=== PATIENT | female | born 1940 | race Caucasian/White ===

== ENCOUNTER 2019-11-19 06:24 | Inpatient (IN) | payer MEDICARE, OTHER ==
[~2019-11-19 06:24] MED LIST: Bisacodyl 5 MG Tab PO PRN; Cyclobenzaprine 10 MG Tab PO PRN; Ketorolac 15 MG/ML SDV IVPUSH PRN; Lactated Ringers 1,000 ML IV SCH; Lidocaine 1%/Sod Bicarbonate in NS 8.4% 1 ML Syringe IDERM PRN; Magnesium Hydroxide 400 MG/5 ML Susp 30 ML Cup PO PRN; Morphine 2 MG/ML SYRINGE IVPUSH PRN; Naloxone 0.4 MG/ML SDV IVPUSH PRN; Ondansetron 4 MG/2 ML SDV IVPUSH PRN; Sennosides 8.6 MG Tab PO PRN; Sodium Chloride 0.9% 10 ML Syringe FLUSH PRN
[2019-11-19] MEDS ORDERED: Pregabalin 25 MG Cap PO SCH (07:00)
[2019-11-19] MEDS ORDERED: Acetaminophen 325 MG Tab PO SCH (07:00)
[2019-11-19] MEDS ORDERED: oxyCODONE ER 10 MG TAB.ER PO SCH (07:00)
[2019-11-19] MEDS ORDERED: Ropivacaine 0.5% 5 MG/ML 30 ML SDV ONE (07:11)
[2019-11-19] MEDS ORDERED: EPINEPHrine 1 MG/ML SDV ONE (07:11)
--- NOTE | 2019-11-19 08:36 | PCM.CONS ---
H&P History of Present Illness - General Date of Service: 11/19/19 Admit Problem/Dx: Admission Diagnosis/Problem Admission Diagnosis/Problem Osteoarthritis of knee Source of Information: Patient, Provider, RN, RN Notes Reviewed History Limitations: Reports: No Limitations - History of Present Illness Initial Comments - Free Text/Narative: Bhumika Stuart is a 78 yo female patient of Dr. Branch who is post-operative day 0 of TKA. Hospital medicine was consulted for post-operative medical care of the following listed medical conditions. At this time she is resting comfortably in bed. Pain is controlled. She denies any chest pain, shortness of breath, palpitations, nausea, or vomiting. She carries a history of: HLD, CAD, Stents placed in LAD on 11/2016, Osteoporosis, HTN, Macular degeneration, Obesity, Hypothyroidism, Pre-DM, History of bioprosthetic valve replacement on 01/15/19, Complete AV block, Abnormal LFTs, History of CABG, Pacemaker, GERD, Aortic sclerosis. She is a former smoker. She is a full code. Her primary care provider is Dr. Stevens. Her pole peeler is Dr. Handy. - Related Data Allergies/Adverse Reactions: Allergies Allergy/AdvReac Type Severity Reaction Status Date / Time adhesive Allergy Blisters Verified 11/16/19 12:44 Sulfa (Sulfonamide Allergy Rash Verified 11/16/19 12:44 Antibiotics) Home Medications: Home Meds Acetaminophen [Tylenol Arthritis] 1,300 mg PO BID 11/16/19 [History] Arginine HCl [l-Arginine] 1,000 mg PO BID 11/16/19 [History] Aspirin 325 mg PO DAILY 11/16/19 [History] Cholecalciferol (Vitamin D3) [Vitamin D3] 1,000 unit PO DAILY 11/16/19 [History] Denosumab [Prolia] 1 dose SQ ASDIRECTED 11/16/19 [History] Glucosamine/D3/Boswellia Marlen [Osteo Bi-Flex Caplet] 1 tab PO DAILY 11/16/19 [History] Lactobacillus Acidophilus [Probiotic] 1 cap PO DAILY 11/16/19 [History] Losartan [Cozaar] 25 mg PO DAILY 11/16/19 [History] Metoprolol Tartrate 50 mg PO BID 11/16/19 [History] Multivitamin 1 each PO DAILY 11/16/19 [History] Pantoprazole Sodium [Protonix] 40 mg PO DAILY 11/16/19 [History] Ubidecarenone [Coq-10] 100 mg PO DAILY 11/16/19 [History] atorvaSTATin [Lipitor] 40 mg PO DAILY 11/16/19 [History] polyethylene glycoL 3350 [MiraLAX] 17 gm PO DAILY 11/16/19 [History] Past Medical History HEENT History: Reports: Impaired Vision, Macular Degeneration Cardiovascular History: Reports: CAD, Stents, Other (See Below) Other Cardiovascular History: left carotid bruit, pacemaker, aortic sclerosis, AV block, Left BBB, aortic valve replacement Respiratory History: Reports: None Gastrointestinal History: Reports: Colon Polyp, Other (See Below) Other Gastrointestinal History: heme + positive, esophagitis, umbilical hernia repair Genitourinary History: Reports: None STACKER History: Reports: None Musculoskeletal History: Reports: Osteoarthritis, Other (See Below) Other Musculoskeletal History: right toe pain, osteoporosis, left leg fracture Neurological History: Reports: None Psychiatric History: Reports: None Endocrine/Metabolic History: Reports: Hypothyroidism, Obesity/BMI 30+ Hematologic History: Reports: None Immunologic History: Reports: None Oncologic (Cancer) History: Reports: None Dermatologic History: Reports: Other (See Below) Other Dermatologic History: paronychia, onchomycosis, corn/callous - Infectious Disease History Infectious Disease History: Reports: None - Past Surgical History Head Surgeries/Procedures: Reports: None HEENT Surgical History: Reports: Cataract Surgery Cardiovascular Surgical History: Reports: Coronary Artery Bypass Respiratory Surgical History: Reports: None GI Surgical History: Reports: None Female Surgical History: Reports: None Male Surgical History: Reports: None Endocrine Surgical History: Reports: None Neurological Surgical History: Reports: None Musculoskeletal Surgical History: Reports: Other (See Below) Other Musculoskeletal Surgeries/Procedures:: right rotator cuff repair and replacement, bunionectomy, left knee arthroscopy, left leg fracture with repair, left wrist surgery Oncologic Surgical History: Reports: None Dermatological Surgical History: Reports: None Social & Family History - Tobacco Use Smoking Status *Q: Former Smoker Used Tobacco, but Quit: Yes Month/Year Tobacco Last Used: 1999 Second Hand Smoke Exposure: No - Caffeine Use Caffeine Use: Reports: Coffee - Recreational Drug Use Recreational Drug Use: No H&P Review of Systems - Review of Systems: Review Of Systems: See Below General: Reports: No Symptoms. Denies: Fever, Chills HEENT: Reports: No Symptoms. Denies: Headaches, Sore Throat Pulmonary: Reports: No Symptoms. Denies: Shortness of Breath, Wheezing, Pleuritic Chest Pain, Cough, Sputum Cardiovascular: Reports: No Symptoms. Denies: Chest Pain, Palpitations, Dyspnea on Exertion Gastrointestinal: Reports: No Symptoms. Denies: Abdominal Pain, Constipation, Diarrhea, Nausea, Vomiting Genitourinary: Reports: No Symptoms Musculoskeletal: Reports: Leg Pain Skin: Reports: No Symptoms. Denies: Cyanosis Psychiatric: Reports: No Symptoms. Denies: Confusion Neurological: Reports: Numbness, Tingling, Difficulty Walking, Gait Disturbance. Denies: Pre-Existing Deficit Hematologic/Lymphatic: Reports: No Symptoms Immunologic: Reports: No Symptoms Exam - Exam Exam: See Below - Exam Quality Assessment: Supplemental Oxygen, DVT Prophylaxis General: Alert, Oriented, Cooperative, Mild Distress HEENT: Conjunctiva Clear, EACs Clear, EOMI, Mucosa Moist & [place], Posterior Pharynx Clear, PERRLA Neck: Supple, Trachea Midline Lungs: Clear to Auscultation, Normal Respiratory Effort, Rhonchi Cardiovascular: Regular Rate, Regular Rhythm, Systolic Murmur GI/Abdominal Exam: Normal Bowel Sounds, Soft, Non-Tender, No Distention (Female) Exam: Deferred Rectal (Female) Exam: Deferred Extremities: Normal Capillary Refill, Leg Pain, Limited Range of Motion, Other (Bandage in place on right leg. Bandage is dry and intact. Cooling pack in place. ) Peripheral Pulses: 2+: Radial (L), Radial (R), Dorsalis Pedis (L), Dorsalis Pedis (R) Skin: Warm, Dry, Intact Neurological: Cranial Nerves Intact (Grossly ) Neuro Extensive - Mental Status: Alert, Oriented x3, Normal Mood/Affect Sepsis Event Note - Focused Exam Date Exam was Performed: 11/19/19 Time Exam was Performed: 14:55 Consult PN Assessment/Plan POD#: 0 (1) S/P total knee arthroplasty SNOMED Code(s): 3255392339324, 389845508, 6368448960896 Code(s): Z96.659 - PRESENCE OF UNSPECIFIED ARTIFICIAL KNEE JOINT Priority: High Current Visit: Yes Qualifiers: Laterality: right Qualified Code(s): Z96.651 - Presence of right artificial knee joint (2) Osteoarthritis SNOMED Code(s): 018349665 Code(s): M19.90 - UNSPECIFIED OSTEOARTHRITIS, UNSPECIFIED SITE Priority: High Current Visit: Yes Qualifiers: Osteoarthritis location: knee Osteoarthritis type: primary Laterality: right Qualified Code(s): M17.11 - Unilateral primary osteoarthritis, right knee (3) HLD (hyperlipidemia) SNOMED Code(s): 58409002 Code(s): E78.5 - HYPERLIPIDEMIA, UNSPECIFIED Priority: Low Current Visit: No Qualifiers: Hyperlipidemia type: unspecified Qualified Code(s): E78.5 - Hyperlipidemia, unspecified (4) CAD (coronary artery disease) SNOMED Code(s): 98082150 Code(s): I25.10 - ATHSCL HEART DISEASE OF [place] CORONARY ARTERY W/O ANG PCTRS Priority: Medium Current Visit: No Qualifiers: Coronary Disease-Associated Artery/Lesion type: unspecified vessel or lesion type [place] vs. transplanted heart: [place] heart Associated angina: angina presence unspecified Qualified Code(s): I25.10 - Atherosclerotic heart disease of [place] coronary artery without angina pectoris (5) History of heart artery stent SNOMED Code(s): 093730248, 729834689 Code(s): Z95.5 - PRESENCE OF CORONARY ANGIOPLASTY IMPLANT AND GRAFT Priority: Medium Current Visit: Yes (6) Osteoporosis SNOMED Code(s): 74467056 Code(s): M81.0 - AGE-RELATED OSTEOPOROSIS W/O CURRENT PATHOLOGICAL FRACTURE Priority: Medium Current Visit: No Qualifiers: Osteoporosis type: unspecified Presence of current pathological fracture: u nspecified Qualified Code(s): M81.0 - Age-related osteoporosis without current pathological fracture (7) HTN (hypertension) SNOMED Code(s): 49569283 Code(s): I10 - ESSENTIAL (PRIMARY) HYPERTENSION Priority: Medium Current Visit: No Qualifiers: Hypertension type: unspecified Qualified Code(s): I10 - Essential (primary) hypertension (8) Macular degeneration SNOMED Code(s): 452659584 Code(s): H35.30 - UNSPECIFIED MACULAR DEGENERATION Priority: Low Current Visit: No Qualifiers: Macular degeneration type: unspecified type Eye laterality: unspecified Qualified Code(s): H35.30 - Unspecified macular degeneration (9) Obesity SNOMED Code(s): 388238711, 546327541 Code(s): E66.9 - OBESITY, UNSPECIFIED Priority: Low Current Visit: No Qualifiers: Obesity type: unspecified obesity type Obesity classification: adult class 1 (BMI 30 - 34.9) Serious obesity comorbidity presence: unspecified whether serious comorbidity present Body mass index: BMI 33.0-33.9 Qualified Code(s): E66.9 - Obesity, unspecified; Z68.33 - Body mass index (BMI) 33.0-33.9, adult (10) Hypothyroidism SNOMED Code(s): 04399211 Code(s): E03.9 - HYPOTHYROIDISM, UNSPECIFIED Priority: Low Current Visit: No Qualifiers: Hypothyroidism type: unspecified Qualified Code(s): E03.9 - Hypothyroidism, unspecified (11) Pre-diabetes SNOMED Code(s): 757715416 Code(s): R73.03 - PREDIABETES Priority: Low Current Visit: No (12) History of aortic valve replacement with bioprosthetic valve SNOMED Code(s): 5809289758042 Code(s): Z95.3 - PRESENCE OF XENOGENIC HEART VALVE Priority: Medium Current Visit: Yes Onset Date: ~01/15/19 (13) History of complete AV block SNOMED Code(s): 319493692876348 Code(s): Z86.79 - PERSONAL HISTORY OF OTHER DISEASES OF THE CIRCULATORY SYSTEM Priority: Medium Current Visit: Yes (14) Abnormal LFTs SNOMED Code(s): 294590338 Code(s): R94.5 - ABNORMAL RESULTS OF LIVER FUNCTION STUDIES Priority: Medium Current Visit: No (15) History of coronary artery bypass graft SNOMED Code(s): 898758517, 722454201 Code(s): Z95.1 - PRESENCE OF AORTOCORONARY BYPASS GRAFT Priority: Medium Current Visit: Yes Onset Date: ~01/11/19 (16) Pacemaker SNOMED Code(s): 921511301 Code(s): Z95.0 - PRESENCE OF CARDIAC PACEMAKER Priority: Medium Current Visit: Yes (17) GERD (gastroesophageal reflux disease) SNOMED Code(s): 377305099 Code(s): K21.9 - GASTRO-ESOPHAGEAL REFLUX DISEASE WITHOUT ESOPHAGITIS Priority: Medium Current Visit: Yes Qualifiers: Esophagitis presence: esophagitis presence not specified Qualified Code(s): K21.9 - Gastro-esophageal reflux disease without esophagitis (18) Aortic valve sclerosis SNOMED Code(s): 84586407 Code(s): I35.8 - OTHER NONRHEUMATIC AORTIC VALVE DISORDERS Priority: Medium Current Visit: No (19) Former smoker SNOMED Code(s): 5784813 Code(s): Z87.891 - PERSONAL HISTORY OF NICOTINE DEPENDENCE Priority: Low Current Visit: No Problem List Initiated/Reviewed/Updated: Yes Plan: I/P: Acute: S/P right total knee arthroplasty - post-operative day 0 -DVT prophylaxis and pain management per primary care team -PT/OT -IS/RT -Monitor oxygen saturation -Titrate oxygen as needed -Home medications reviewed -Vital signs stable -Monitor labs -Pre-operative Hgb was 13.9 -Pre-operative GFR was 68 -Pre-operative BUN was 24 -Pre-operative A1C was 5.8% -Pre-operative Echo showed EF of 65-70% with biatrial dilation and a bioprosthetic valve -Pre-operative EKG showed a LBBB Osteoarthritis of right knee -Pain management per primary care team Chronic: HLD CAD Stents placed in LAD on 11/2016 Osteoporosis HTN Macular degeneration Obesity Hypothyroidism Pre-DM History of bioprosthetic aortic valve replacement on 01/15/19 Complete AV block Abnormal LFTs History of CABG Pacemaker GERD Aortic Sclerosis Plan: Telemetry CM for discharge planning GI prophylaxis Home medications as indicated Other orders as listed above Routine AM labs She is a full code. Her PCP is Dr. [place]. Her pole peeler is Dr. Handy. Thank you for allowing us to participate in the care of this patient!! Requesting Provider: Dr. Branch Date Consult Requested: 11/19/19 Patient History Reviewed: Yes Admission H&P Reviewed: Yes Notified Requestor: Yes
[2019-11-19] MEDS ORDERED: Midazolam 1 MG/ML 2 ML SDV ONE (08:54)
[2019-11-19] MEDS ORDERED: Propofol 200 MG/20 ML SDV ONE ×2 (08:54→11:18)
[2019-11-19] MEDS ORDERED: Lidocaine 1% 4 ML ONE (08:54)
[2019-11-19] MEDS ORDERED: fentaNYL 100 MCG/2 ML SDV ONE ×2 (08:54→11:23)
[2019-11-19] MEDS ORDERED: ceFAZolin 1 GM Vial ONE ×2 (09:01→09:08)
[2019-11-19] MEDS ORDERED: Vancomycin 1 GM SDV ONE (09:07)
[2019-11-19] MEDS ORDERED: Iodine/Sodium Iodide 2% Tincture 30 ML Bottle ONE (09:08)
[2019-11-19] MEDS ORDERED: Bupivacaine 0.25% 10 ML SDV ONE (09:08)
--- NOTE | 2019-11-19 09:30 | PCM.PREANE ---
Preanesthetic Assessment - Anesthesia/Transfusion/Family Hx Anesthesia History: Prior Anesthesia Without Reaction Family History of Anesthesia Reaction: No Transfusion History: No Prior Transfusion(s) - Review of Systems General: No Symptoms Pulmonary: No Symptoms Cardiovascular: No Symptoms Gastrointestinal: No Symptoms Neurological: No Symptoms Other: Reports: None - Physical Assessment NPO Status Date: 11/18/19 NPO Status Time: 21:00 Vital Signs: Last Vital Signs Temp 36.2 C 11/19/19 08:15 Pulse 60 11/19/19 08:15 Resp 16 11/19/19 08:15 BP 144/57 H 11/19/19 08:15 Pulse Ox 98 11/19/19 08:15 Height: 1.5 m Weight: 75.75 kg ASA Class: 3 Mental Status: Alert & Oriented x3 Airway Class: Mallampati = 2 Dentition: Reports: Normal Dentition Thyro-Mental Finger Breadths: 3 Mouth Opening Finger Breadths: 3 ROM/Head Extension: Full Lungs: Clear to Auscultation, Normal Respiratory Effort Cardiovascular: Regular Rate, Murmurs - Lab Values: Laboratory Last Values COVID-19 PCR Not detected (NOT DETECT) 11/15/19 11:00 MRSA (PCR) Negative 11/09/19 13:55 - Allergies Allergies/Adverse Reactions: Allergies Allergy/AdvReac Type Severity Reaction Status Date / Time adhesive Allergy Blisters Verified 11/16/19 12:44 Sulfa (Sulfonamide Allergy Rash Verified 11/16/19 12:44 Antibiotics) - Anesthesia Plan Beta Nini: Metoprolol Med Last Dose Date: 11/19/19 Med Last Dose Time: 05:30 - Acknowledgements Anesthesia Type Planned: Spinal Pt an Appropriate Candidate for the Planned Anesthesia: Yes Alternatives and Risks of Anesthesia Discussed w Pt/Guardian: Yes Pt/Guardian Understands and Agrees with Anesthesia Plan: Yes PreAnesthesia Questionnaire HEENT History: Reports: Impaired Vision, Macular Degeneration Cardiovascular History: Reports: CAD, Stents, Other (See Below) Other Cardiovascular History: left carotid bruit, pacemaker, aortic sclerosis, AV block, Left BBB, aortic valve replacement Respiratory History: Reports: None Gastrointestinal History: Reports: Colon Polyp, GERD, Other (See Below) Other Gastrointestinal History: heme + positive, esophagitis, umbilical hernia repair Genitourinary History: Reports: None PROFESSIONAL DRIVER History: Reports: None Musculoskeletal History: Reports: Osteoarthritis, Other (See Below) Other Musculoskeletal History: right toe pain, osteoporosis, left leg fracture Neurological History: Reports: None Psychiatric History: Reports: None Endocrine/Metabolic History: Reports: Obesity/BMI 30+ Hematologic History: Reports: None Immunologic History: Reports: None Oncologic (Cancer) History: Reports: None Dermatologic History: Reports: Other (See Below) Other Dermatologic History: paronychia, onchomycosis, corn/callous - Infectious Disease History Infectious Disease History: Reports: None - Past Surgical History Head Surgeries/Procedures: Reports: None HEENT Surgical History: Reports: Cataract Surgery Cardiovascular Surgical History: Reports: Coronary Artery Bypass, Coronary Artery Stent, Pacer, Valve Replacement Respiratory Surgical History: Reports: None GI Surgical History: Reports: None Female Surgical History: Reports: None Male Surgical History: Reports: None Endocrine Surgical History: Reports: None Neurological Surgical History: Reports: None Musculoskeletal Surgical History: Reports: Other (See Below) Other Musculoskeletal Surgeries/Procedures:: right rotator cuff repair and replacement, bunionectomy, left knee arthroscopy, left leg fracture with repair, left wrist surgery, left wrist, left hip Oncologic Surgical History: Reports: None Dermatological Surgical History: Reports: None - SUBSTANCE USE Smoking Status *Q: Former Smoker Second Hand Smoke Exposure: No Recreational Drug Use History: No - HOME MEDS Home Medications: Home Meds Acetaminophen [Tylenol Arthritis] 1,300 mg PO BID 11/16/19 [History] Arginine HCl [l-Arginine] 1,000 mg PO BID 11/16/19 [History] Aspirin 325 mg PO DAILY 11/16/19 [History] Cholecalciferol (Vitamin D3) [Vitamin D3] 1,000 unit PO DAILY 11/16/19 [History] Denosumab [Prolia] 1 dose SQ ASDIRECTED 11/16/19 [History] Glucosamine/D3/Boswellia Marlen [Osteo Bi-Flex Caplet] 1 tab PO DAILY 11/16/19 [History] Lactobacillus Acidophilus [Probiotic] 1 cap PO DAILY 11/16/19 [History] Losartan [Cozaar] 25 mg PO DAILY 11/16/19 [History] Metoprolol Tartrate 50 mg PO BID 11/16/19 [History] Multivitamin 1 each PO DAILY 11/16/19 [History] Pantoprazole Sodium [Protonix] 40 mg PO DAILY 11/16/19 [History] Ubidecarenone [Coq-10] 100 mg PO DAILY 11/16/19 [History] atorvaSTATin [Lipitor] 40 mg PO DAILY 11/16/19 [History] polyethylene glycoL 3350 [MiraLAX] 17 gm PO DAILY 11/16/19 [History] - CURRENT (IN HOUSE) MEDS Current Meds: Current Medications Acetaminophen (Tylenol) 975 mg PO ONETIME RADU Stop: 11/19/19 14:00 Last Admin: 11/19/19 09:12 Dose: 975 mg Documented by: Aspirin (Ecotrin) 325 mg PO BID [facility]U Bisacodyl (Dulcolax) 5 mg PO DAILY PRN PRN Reason: Constipation Morphine Sulfate 8 mg/Epinephrine HCl 0.3 mg/Cefuroxime Sodium 750 mg/Ketorolac Tromethamine 30 mg/Sodium Chloride 7.9 ml 0 mg .XX ASDIRECTED PRN PRN Reason: Pain Stop: 11/19/19 23:00 Cyclobenzaprine HCl (Flexeril) 5 mg PO TID PRN PRN Reason: Spasms Docusate Sodium (Colace) 100 mg PO BID RADU Famotidine (Pepcid) 20 mg PO Q12H [facility] Lactated Ringer's (Ringers, Lactated) 1,000 mls @ 125 mls/hr IV ASDIRECTED [facility] Stop: 11/19/19 23:00 Cefazolin Sodium/Dextrose 2 gm (/ Premix) 50 mls @ 100 mls/hr IV Q8H [facility] Stop: 11/20/19 09:44 Ketorolac Tromethamine (Toradol) 15 mg IVPUSH Q6H PRN PRN Reason: Pain Lidocaine/Sodium Bicarbonate (Buffered Lidocaine 1% In Ns 8.4%) 0.25 ml IDERM ONETIME PRN PRN Reason: Prior to IV Start Stop: 11/19/19 18:00 Magnesium Hydroxide (Milk Of Magnesia) 30 ml PO BID PRN PRN Reason: Constipation Morphine Sulfate (Morphine) 2 mg IVPUSH Q2H PRN PRN Reason: Breakthrough Pain Naloxone HCl (Narcan) 0.1 mg IVPUSH Q5M PRN PRN Reason: Oversedation Ondansetron HCl (Zofran) 4 mg IVPUSH Q6H PRN PRN Reason: Nausea/Vomiting Oxycodone HCl (Oxycontin) 10 mg PO ONETIME [facility] Stop: 11/19/19 14:00 Last Admin: 11/19/19 09:13 Dose: 10 mg Documented by: Oxycodone/Acetaminophen (Percocet 325-5 Mg) 1 - 2 tab PO Q4H PRN PRN Reason: Pain Pregabalin (Lyrica) 50 mg PO ONETIME [facility] Stop: 11/19/19 14:00 Last Admin: 11/19/19 09:13 Dose: 50 mg Documented by: Senna (Senna) 8.6 mg PO BID PRN PRN Reason: Constipation Sodium Chloride (Saline Flush) 10 ml FLUSH ASDIRECTED PRN PRN Reason: Keep Vein Open Stop: 11/19/19 18:00 Discontinued Medications Bupivacaine HCl (Sensorcaine-Mpf 0.25%) Confirm Administered Dose 30 ml .ROUTE .STK-MED ONE Stop: 11/19/19 09:09 Cefazolin Sodium (Ancef) Confirm Administered Dose 2 gm .ROUTE .STK-MED ONE Stop: 11/19/19 09:02 Cefazolin Sodium (Ancef) Confirm Administered Dose 2 gm .ROUTE .STK-MED ONE Stop: 11/19/19 09:09 Epinephrine HCl (Adrenalin) Confirm Administered Dose 1 mg .ROUTE .STK-MED ONE Stop: 11/19/19 07:12 Fentanyl (Sublimaze) Confirm Administered Dose 100 mcg .ROUTE .STK-MED ONE Stop: 11/19/19 08:55 Lidocaine HCl (Xylocaine-Mpf 1%) Confirm Administered Dose 4 mls @ as directed .ROUTE .STK-MED ONE Stop: 11/19/19 08:55 Iodine (Iodine 2% Mild Tincture) Confirm Administered Dose 30 ml .ROUTE .STK-MED ONE Stop: 11/19/19 09:09 Midazolam HCl (Versed 1 Mg/Ml) Confirm Administered Dose 2 mg .ROUTE .STK-MED ONE Stop: 11/19/19 08:55 Propofol (Diprivan 20 Ml) Confirm Administered Dose 200 mg .ROUTE .STK-MED ONE Stop: 11/19/19 08:55 Ropivacaine (Naropin 0.5%) Confirm Administered Dose 30 ml .ROUTE .STK-MED ONE Stop: 11/19/19 07:12 Tranexamic Acid (Cyklokapron) Confirm Administered Dose 1,000 mg .ROUTE .STK-MED ONE Stop: 11/19/19 09:08 Vancomycin HCl (Vancomycin) Confirm Administered Dose 1 gm .ROUTE .STK-MED ONE Stop: 11/19/19 09:08
[2019-11-19] MEDS ORDERED: Morphine 8 MG, EPINEPHrine 0.3 MG, Cefuroxime 750 MG, Ketorolac 30 MG, Sodium Chloride ... PRN ×5 (11:15)
[2019-11-19] MEDS ORDERED: HYDROmorphone 0.5 MG/0.5 ML Syringe ONE (11:26)
--- NOTE | 2019-11-19 12:51 | PCM.POSTAN ---
POST ANESTHESIA ASSESSMENT - MENTAL STATUS Mental Status: Alert, Oriented - VITAL SIGNS Vital Signs: Last Vital Signs Temp 36.2 C 11/19/19 08:15 Pulse 60 11/19/19 08:15 Resp 16 11/19/19 08:15 BP 144/57 H 11/19/19 08:15 Pulse Ox 98 11/19/19 08:15 - RESPIRATORY Respiratory Status: Respiratory Rate WNL, Airway Patent, O2 Saturation Stable - CARDIOVASCULAR CV Status: Pulse Rate WNL, Blood Pressure Stable - GASTROINTESTINAL GI Status: No Symptoms - PAIN Pain Score: 2 - POST OP HYDRATION Hydration Status: Adequate & Stable
[2019-11-19] MEDS ORDERED: Ondansetron 4 MG/2 ML SDV IVPUSH PRN ×2 (12:55→12:56)
[2019-11-19] MEDS ORDERED: HYDROmorphone 0.5 MG/0.5 ML Syringe IVPUSH PRN (12:56)
[2019-11-19] MEDS ORDERED: fentaNYL 100 MCG/2 ML SDV IVPUSH PRN (12:56)
[2019-11-19] MEDS: fentaNYL 100 MCG/2 ML SDV IVPUSH PRN ×2 (13:00→13:33)
--- NOTE | 2019-11-19 13:20 | PCM.SN.2 ---
- Free Text/Narrative Note: Right selective femoral nerve block at the adductor canal for post-procedure pain control under US guidance requested by Dr. Branch. Time Out: 1226 Start: 1226 End: 1237 Chart reviewed. Consent signed. Questions answered. Appropriate monitors applied. Time out performed. Right mid-shaft femur identified with ultrasound, scanning medially of femur, the femoral artery in the adductor canal visualized, and the femoral nerve located laterally to the artery. The skin was prepped lateral to the ultrasound probe with chlorahexadine times two. The 21ga 4 insulated block needle was inserted under direct ultrasound guidance into the adductor canal. 25mL of 0.5% ropivacaine with 1:200,000 epinephrine was injected circumferentially around the nerve with intermittent negative aspiration noted. Patient tolerated the procedure well. Sterile technique noted along with sterile gloves, mask, and sterile probe cover. See picture on progress note and vital signs on anesthesia record. Erinn Buckner STRAINER CLEANER
--- NOTE | 2019-11-19 13:23 | CR ---
Right knee: AP and crosstable lateral views of the right knee were obtained. Comparison: Standing AP bilateral knee exam of 07/29/09 is available. Knee prosthesis is seen. Components are aligned. Soft tissue air is noted from the surgical procedure. Underlying bony structures are intact. Impression: 1. Satisfactory postop radiographic appearance of recently placed right knee prosthesis. Diagnostic code #2 This report was dictated in MDT
[2019-11-19] MEDS ORDERED: Meperidine 50 MG/ML Vial IVPUSH STA (13:34)
--- NOTE | 2019-11-19 13:38 | PCM48HPAN ---
Post Anesthesia Note - EVALUATION WITHIN 48HRS OF ANESTHETIC Vital Signs in Normal Range: Yes Patient Participated in Evaluation: Yes Respiratory Function Stable: Yes Airway Patent: Yes Cardiovascular Function Stable: Yes Hydration Status Stable: Yes Pain Control Satisfactory: No (pt inc pain, PACU nurse titrating narcotics) Nausea and Vomiting Control Satisfactory: Yes Mental Status Recovered: Yes Vital Signs: Last Vital Signs Temp 36.7 C 11/19/19 12:45 Pulse 60 11/19/19 08:15 Resp 21 H 11/19/19 13:15 BP 161/59 H 11/19/19 13:15 Pulse Ox 98 11/19/19 13:15
[2019-11-19] MEDS: Acetaminophen/oxyCODONE 325-5 MG Tab PO PRN ×2 (13:46→17:56)
[2019-11-19] MEDS: ceFAZolin 2 GM in Premix Bag 1 BAG IV SCH (17:50)
[2019-11-19] MEDS: Metoprolol Tartrate 50 MG Tab PO SCH (20:32)
[2019-11-19] MEDS: Famotidine 20 MG Tab PO SCH (20:33)
[2019-11-19] MEDS: Docusate Sodium 100 MG Cap PO SCH (20:33)
[2019-11-20] MEDS: ceFAZolin 2 GM in Premix Bag 1 BAG IV SCH ×2 (01:06→09:55)
[2019-11-20] MEDS: Acetaminophen/oxyCODONE 325-5 MG Tab PO PRN ×3 (01:10→14:44)
--- NOTE | 2019-11-20 07:46 | PCM.CONSN ---
- General Info Date of Service: 11/20/19 Admission Dx/Problem (Free Text): Admission Diagnosis/Problem Admission Diagnosis/Problem Osteoarthritis of knee Functional Status: Reports: Pain Controlled, Tolerating Diet, Ambulating, Urinating, Incentive Spirometry. Denies: New Symptoms - Review of Systems General: Reports: No Symptoms. Denies: Chills HEENT: Reports: No Symptoms. Denies: Headaches, Sore Throat Pulmonary: Reports: No Symptoms. Denies: Shortness of Breath, Pleuritic Chest Pain, Cough, Sputum, Wheezing Cardiovascular: Reports: No Symptoms. Denies: Chest Pain, Palpitations, Dyspnea on Exertion Gastrointestinal: Reports: No Symptoms. Denies: Abdominal Pain, Constipation, Diarrhea, Nausea, Vomiting Genitourinary: Reports: No Symptoms. Denies: Pain Musculoskeletal: Reports: Leg Pain Skin: Reports: No Symptoms. Denies: Cyanosis Neurological: Reports: Difficulty Walking, Gait Disturbance. Denies: Confusion, Numbness, Tingling Psychiatric: Reports: No Symptoms - Patient Data Vitals - Most Recent: Last Vital Signs Temp 98.1 F 11/20/19 03:49 Pulse 98 11/20/19 03:49 Resp 16 11/20/19 03:49 BP 148/60 H 11/20/19 03:49 Pulse Ox 95 11/20/19 03:49 Weight - Most Recent: 163 lb 12.8 oz I&O - Last 24 Hours: Intake & Output 11/19/19 11/20/19 11/20/19 22:59 06:59 14:59 Intake Total 650 Output Total 400 Balance 250 Lab Results Last 24 Hours: Laboratory Results - last 24 hr 11/20/19 11/20/19 Range/Units 05:04 05:04 WBC 6.70 (3.98-10.04) K/mm3 RBC 3.87 L (3.98-5.22) M/mm3 Hgb 11.3 (11.2-15.7) gm/dl Hct 36.8 (34.1-44.9) % MCV 95.1 H (79.4-94.8) fl MCH 29.2 (25.6-32.2) pg MCHC 30.7 L (32.2-35.5) g/dl RDW Std Deviation 41.7 (36.4-46.3) fL Plt Count 130 L (182-369) K/mm3 MPV 10.4 (9.4-12.3) fl Sodium 138 (136-145) mEq/L Potassium 3.9 (3.5-5.1) mEq/L Chloride 103 (98-107) mEq/L Carbon Dioxide 29 (21-32) mEq/L Anion Gap 9.9 (5-15) BUN 20 H (7-18) mg/dL Creatinine 0.9 (0.55-1.02) mg/dL Est Cr Clr Drug Dosing 38.20 mL/min Estimated GFR (MDRD) > 60 (>60) mL/min BUN/Creatinine Ratio 22.2 H (14-18) Glucose 134 H (83-115) mg/dL Calcium 8.6 (8.5-10.1) mg/dL Total Bilirubin 0.5 (0.2-1.0) mg/dL AST 23 (15-37) U/L ALT 23 (14-59) U/L Alkaline Phosphatase 48 (46-116) U/L Total Protein 6.3 L (6.4-8.2) g/dl Albumin 3.0 L (3.4-5.0) g/dl Globulin 3.3 gm/dL Albumin/Globulin Ratio 0.9 L (1-2) Med Orders - Current: Current Medications Aspirin (Ecotrin) 325 mg PO BID [facility] Bisacodyl (Dulcolax) 5 mg PO DAILY PRN PRN Reason: Constipation Cholecalciferol (Vitamin D3) 25 mcg PO DAILY [facility] Cyclobenzaprine HCl (Flexeril) 5 mg PO TID PRN PRN Reason: Spasms Last Admin: 11/19/19 20:33 Dose: 5 mg Documented by: Docusate Sodium (Colace) 100 mg PO BID [facility] Last Admin: 11/19/19 20:33 Dose: 100 mg Documented by: Famotidine (Pepcid) 20 mg PO Q12H [facility] Last Admin: 11/19/19 20:33 Dose: 20 mg Documented by: Cefazolin Sodium/Dextrose 2 gm (/ Premix) 50 mls @ 100 mls/hr IV Q8H [facility] Stop: 11/20/19 09:44 Last Admin: 11/20/19 01:06 Dose: 100 mls/hr Documented by: Ketorolac Tromethamine (Toradol) 15 mg IVPUSH Q6H PRN PRN Reason: Pain Magnesium Hydroxide (Milk Of Magnesia) 30 ml PO BID PRN PRN Reason: Constipation Metoprolol Tartrate (Lopressor) 50 mg PO BID [facility] Last Admin: 11/19/19 20:32 Dose: 50 mg Documented by: Morphine Sulfate (Morphine) 2 mg IVPUSH Q2H PRN PRN Reason: Breakthrough Pain Naloxone HCl (Narcan) 0.1 mg IVPUSH Q5M PRN PRN Reason: Oversedation Ondansetron HCl (Zofran) 4 mg IVPUSH Q6H PRN PRN Reason: Nausea/Vomiting Oxycodone/Acetaminophen (Percocet 325-5 Mg) 1 - 2 tab PO Q4H PRN PRN Reason: Pain Last Admin: 11/20/19 01:10 Dose: 2 tab Documented by: Pantoprazole Sodium (Protonix) 40 mg PO DAILY [facility] Polyethylene Glycol (Miralax) 17 gm PO DAILY [facility] Rosuvastatin Calcium (Crestor) 10 mg PO DAILY [facility] Saccharomyces Boulardii (Florastor) 1 mg PO DAILY [facility] Senna (Senna) 8.6 mg PO BID PRN PRN Reason: Constipation Discontinued Medications Acetaminophen (Tylenol) 975 mg PO ONETIME [facility] Stop: 11/19/19 14:00 Last Admin: 11/19/19 09:12 Dose: 975 mg Documented by: Bupivacaine HCl (Sensorcaine-Mpf 0.25%) Confirm Administered Dose 30 ml .ROUTE .STK-MED ONE Stop: 11/19/19 09:09 Last Admin: 11/19/19 12:00 Dose: 30 ml Documented by: Cefazolin Sodium (Ancef) Confirm Administered Dose 2 gm .ROUTE .STK-MED ONE Stop: 11/19/19 09:02 Last Admin: 11/19/19 11:56 Dose: 2 gm Documented by: Cefazolin Sodium (Ancef) Confirm Administered Dose 2 gm .ROUTE .STK-MED ONE Stop: 11/19/19 09:09 Morphine Sulfate 8 mg/Epinephrine HCl 0.3 mg/Cefuroxime Sodium 750 mg/Ketorolac Tromethamine 30 mg/Sodium Chloride 7.9 ml 0 mg .XX ASDIRECTED PRN PRN Reason: Pain Stop: 11/19/19 23:00 Last Admin: 11/19/19 12:00 Dose: 788.3 mg Documented by: Epinephrine HCl (Adrenalin) Confirm Administered Dose 1 mg .ROUTE .STK-MED ONE Stop: 11/19/19 07:12 Fentanyl (Sublimaze) Confirm Administered Dose 100 mcg .ROUTE .STK-MED ONE Stop: 11/19/19 08:55 Fentanyl (Sublimaze) Confirm Administered Dose 100 mcg .ROUTE .STK-MED ONE Stop: 11/19/19 11:24 Fentanyl (Sublimaze) 50 mcg IVPUSH Q5M PRN PRN Reason: Pain Stop: 11/19/19 15:00 Last Admin: 11/19/19 13:33 Dose: 50 mcg Documented by: Fentanyl (Sublimaze) 50 mcg IVPUSH Q5M PRN PRN Reason: Pain Stop: 11/19/19 15:00 Hydromorphone HCl (Dilaudid) Confirm Administered Dose 0.5 mg .ROUTE .STK-MED ONE Stop: 11/19/19 11:27 Hydromorphone HCl (Dilaudid) 0.5 mg IVPUSH Q10M PRN PRN Reason: Pain (severe 7-10) Stop: 11/19/19 15:00 Last Admin: 11/19/19 13:07 Dose: 0.5 mg Documented by: Lactated Ringer's (Ringers, Lactated) 1,000 mls @ 125 mls/hr IV ASDIRECTED [facility] Stop: 11/19/19 23:00 Last Admin: 11/19/19 09:45 Dose: 125 mls/hr Documented by: Lidocaine HCl (Xylocaine-Mpf 1%) Confirm Administered Dose 4 mls @ as directed .ROUTE .STK-MED ONE Stop: 11/19/19 08:55 Iodine (Iodine 2% Mild Tincture) Confirm Administered Dose 30 ml .ROUTE .STK-MED ONE Stop: 11/19/19 09:09 Last Admin: 11/19/19 11:54 Dose: 18 ml Documented by: Lidocaine/Sodium Bicarbonate (Buffered Lidocaine 1% In Ns 8.4%) 0.25 ml IDERM ONETIME PRN PRN Reason: Prior to IV Start Stop: 11/19/19 18:00 Last Admin: 11/19/19 09:57 Dose: 0.25 ml Documented by: Losartan Potassium (Cozaar) 25 mg PO DAILY [facility] Meperidine HCl (Meperidine) 12.5 mg IVPUSH STAT STA Stop: 11/19/19 13:35 Last Admin: 11/20/19 02:01 Dose: Not Given Documented by: Midazolam HCl (Versed 1 Mg/Ml) Confirm Administered Dose 2 mg .ROUTE .STK-MED ONE Stop: 11/19/19 08:55 Non-Formulary Medication (Ubidecarenone) 100 mg PO DAILY [facility] Ondansetron HCl (Zofran) 4 mg IVPUSH ONETIME PRN PRN Reason: Nausea/Vomiting Stop: 11/19/19 15:00 Ondansetron HCl (Zofran) 4 mg IVPUSH ONETIME PRN PRN Reason: Nausea/Vomiting Stop: 11/19/19 15:00 Oxycodone HCl (Oxycontin) 10 mg PO ONETIME [facility] Stop: 11/19/19 14:00 Last Admin: 11/19/19 09:13 Dose: 10 mg Documented by: Pregabalin (Lyrica) 50 mg PO ONETIME [facility] Stop: 11/19/19 14:00 Last Admin: 11/19/19 09:13 Dose: 50 mg Documented by: Propofol (Diprivan 20 Ml) Confirm Administered Dose 200 mg .ROUTE .ST-MED ONE Stop: 11/19/19 08:55 Propofol (Diprivan 20 Ml) Confirm Administered Dose 200 mg .ROUTE .ST-MED ONE Stop: 11/19/19 11:19 Ropivacaine (Naropin 0.5%) Confirm Administered Dose 30 ml .ROUTE .[facility]-MED ONE Stop: 11/19/19 07:12 Sodium Chloride (Saline Flush) 10 ml FLUSH ASDIRECTED PRN PRN Reason: Keep Vein Open Stop: 11/19/19 18:00 Tranexamic Acid (Cyklokapron) Confirm Administered Dose 1,000 mg .ROUTE .ST-MED ONE Stop: 11/19/19 09:08 Last Admin: 11/19/19 12:03 Dose: 1,000 mg Documented by: Vancomycin HCl (Vancomycin) Confirm Administered Dose 1 gm .ROUTE .ST-MED ONE Stop: 11/19/19 09:08 Last Admin: 11/19/19 12:03 Dose: 1 gm Documented by: - Exam Quality Assessment: Supplemental Oxygen (2L), DVT Prophylaxis. No: Urine Catheter General: Alert, Oriented, Cooperative, No Acute Distress HEENT: Pupils Equal, Pupils Reactive, Mucous Membr. Moist/[place] Neck: Supple, Trachea Midline Lungs: Clear to Auscultation, Normal Respiratory Effort Cardiovascular: Regular Rate, Regular Rhythm, Murmurs GI/Abdominal Exam: Normal Bowel Sounds, Soft, Non-Tender, No Distention (Female) Exam: Deferred Back Exam: Normal Inspection, Full Range of Motion Extremities: Normal Capillary Refill, Leg Pain, Limited Range of Motion, Other (Bandage in place on right leg. Cooling pack in place. ) Peripheral Pulses: 2+: Radial (L), Radial (R), Dorsalis Pedis (L), Dorsalis Pedis (R) Skin: Warm, Dry, Intact Wound/Incisions: Dressing Dry and Intact Neurological: No New Focal Deficit Psy/Mental Status: Alert, Normal Affect, Normal Mood Sepsis Event Note - Evaluation Sepsis Screening Result: No Definite Risk - Focused Exam Vital Signs: Vital Signs Temp Temp Pulse Pulse Resp BP BP 11/20/19 03:49 98.1 F 98 16 148/60 H 11/20/19 00:00 97.6 F 82 16 143/59 H 11/19/19 20:32 83 136/59 L 11/19/19 20:06 98.2 F 84 16 142/76 H Pulse Ox 11/20/19 03:49 95 11/20/19 00:00 98 11/19/19 20:32 11/19/19 20:06 98 Date Exam was Performed: 11/20/19 Time Exam was Performed: 13:37 Consult PN Assessment/Plan POD#: 1 (1) S/P total knee arthroplasty SNOMED Code(s): 6678345373496, 538697291, 5900472844051 Code(s): Z96.659 - PRESENCE OF UNSPECIFIED ARTIFICIAL KNEE JOINT Priority: High Current Visit: Yes Qualifiers: Laterality: right Qualified Code(s): Z96.651 - Presence of right artificial knee joint (2) Osteoarthritis SNOMED Code(s): 500847368 Code(s): M19.90 - UNSPECIFIED OSTEOARTHRITIS, UNSPECIFIED SITE Priority: High Current Visit: Yes Qualifiers: Osteoarthritis location: knee Osteoarthritis type: primary Laterality: right Qualified Code(s): M17.11 - Unilateral primary osteoarthritis, right knee (3) HLD (hyperlipidemia) SNOMED Code(s): 13781651 Code(s): E78.5 - HYPERLIPIDEMIA, UNSPECIFIED Priority: Low Current Visit: No Qualifiers: Hyperlipidemia type: unspecified Qualified Code(s): E78.5 - Hyperlipidemia, unspecified (4) CAD (coronary artery disease) SNOMED Code(s): 11675203 Code(s): I25.10 - ATHSCL HEART DISEASE OF [place] CORONARY ARTERY W/O ANG PCTRS Priority: Medium Current Visit: No Qualifiers: Coronary Disease-Associated Artery/Lesion type: unspecified vessel or lesion type [place] vs. transplanted heart: [place] heart Associated angina: angina presence unspecified Qualified Code(s): I25.10 - Atherosclerotic heart disease of [place] coronary artery without angina pectoris (5) History of heart artery stent SNOMED Code(s): 820787042, 663153561 Code(s): Z95.5 - PRESENCE OF CORONARY ANGIOPLASTY IMPLANT AND GRAFT Priority: Medium Current Visit: Yes (6) Osteoporosis SNOMED Code(s): 61679492 Code(s): M81.0 - AGE-RELATED OSTEOPOROSIS W/O CURRENT PATHOLOGICAL FRACTURE Priority: Medium Current Visit: No Qualifiers: Osteoporosis type: unspecified Presence of current pathological fracture: unspecified Qualified Code(s): M81.0 - Age-related osteoporosis without current pathological fracture (7) HTN (hypertension) SNOMED Code(s): 25961054 Code(s): I10 - ESSENTIAL (PRIMARY) HYPERTENSION Priority: Medium Current Visit: No Qualifiers: Hypertension type: unspecified Qualified Code(s): I10 - Essential (primary) hypertension (8) Macular degeneration SNOMED Code(s): 026898410 Code(s): H35.30 - UNSPECIFIED MACULAR DEGENERATION Priority: Low Current Visit: No Qualifiers: Macular degeneration type: unspecified type Eye laterality: unspecified Qualified Code(s): H35.30 - Unspecified macular degeneration (9) Obesity SNOMED Code(s): 047109581, 390979226 Code(s): E66.9 - OBESITY, UNSPECIFIED Priority: Low Current Visit: No Qualifiers: Obesity type: unspecified obesity type Obesity classification: adult class 1 (BMI 30 - 34.9) Serious obesity comorbidity presence: unspecified whether serious comorbidity present Body mass index: BMI 33.0-33.9 Qualified Code(s): E66.9 - Obesity, unspecified; Z68.33 - Body mass index (BMI) 33.0-33.9, adult (10) Hypothyroidism SNOMED Code(s): 58983521 Code(s): E03.9 - HYPOTHYROIDISM, UNSPECIFIED Priority: Low Current Visit: No Qualifiers: Hypothyroidism type: unspecified Qualified Code(s): E03.9 - Hypothyroidism, unspecified (11) Pre-diabetes SNOMED Code(s): 659615227 Code(s): R73.03 - PREDIABETES Priority: Low Current Visit: No (12) History of aortic valve replacement with bioprosthetic valve SNOMED Code(s): 2458523207500 Code(s): Z95.3 - PRESENCE OF XENOGENIC HEART VALVE Priority: Medium Current Visit: Yes Onset Date: ~01/15/19 (13) History of complete AV block SNOMED Code(s): 329722235230176 Code(s): Z86.79 - PERSONAL HISTORY OF OTHER DISEASES OF THE CIRCULATORY SYSTEM Priority: Medium Current Visit: Yes (14) Abnormal LFTs SNOMED Code(s): 299220643 Code(s): R94.5 - ABNORMAL RESULTS OF LIVER FUNCTION STUDIES Priority: Medium Current Visit: No (15) History of coronary artery bypass graft SNOMED Code(s): 433684081, 543134606 Code(s): Z95.1 - PRESENCE OF AORTOCORONARY BYPASS GRAFT Priority: Medium Current Visit: Yes Onset Date: ~01/11/19 (16) Pacemaker SNOMED Code(s): 688818548 Code(s): Z95.0 - PRESENCE OF CARDIAC PACEMAKER Priority: Medium Current Visit: Yes (17) GERD (gastroesophageal reflux disease) SNOMED Code(s): 513815309 Code(s): K21.9 - GASTRO-ESOPHAGEAL REFLUX DISEASE WITHOUT ESOPHAGITIS Priority: Medium Current Visit: Yes Qualifiers: Esophagitis presence: esophagitis presence not specified Qualified Code(s): K21.9 - Gastro-esophageal reflux disease without esophagitis (18) Aortic valve sclerosis SNOMED Code(s): 26643576 Code(s): I35.8 - OTHER NONRHEUMATIC AORTIC VALVE DISORDERS Priority: Medium Current Visit: No (19) Former smoker SNOMED Code(s): 6441526 Code(s): Z87.891 - PERSONAL HISTORY OF NICOTINE DEPENDENCE Priority: Low Current Visit: No (20) Postoperative hypoxia SNOMED Code(s): 736676529 Code(s): R09.02 - HYPOXEMIA; Z98.890 - OTHER SPECIFIED POSTPROCEDURAL STATES Priority: High Current Visit: Yes Problem List Initiated/Reviewed/Updated: Yes Plan: I/P: Acute: S/P right total knee arthroplasty - post-operative day 1 -DVT prophylaxis and pain management per primary care team -PT/OT -IS/RT -Monitor oxygen saturation -Titrate oxygen as needed -Home medications reviewed -Vital signs stable -Monitor labs -Pre-operative Hgb was 13.9; Now 11.3 -Pre-operative GFR was 68; Now >60 -Pre-operative BUN was 24; Now 20 -Pre-operative A1C was 5.8% -Pre-operative Echo showed EF of 65-70% with biatrial dilation and a bioprosthetic valve -Pre-operative EKG showed a LBBB Osteoarthritis of right knee -Pain management per primary care team Post-operative hypoxia -Saturations in the 80's with ambulation -Requiring 2L via [place] -Will require oxygen on discharge. -Follow-up with PCP within 7-10 days of discharge Chronic: HLD CAD Stents placed in LAD on 11/2016 Osteoporosis HTN Macular degeneration Obesity Hypothyroidism Pre-DM History of bioprosthetic aortic valve replacement on 01/15/19 Complete AV block Abnormal LFTs History of CABG Pacemaker GERD Aortic Sclerosis Plan: Telemetry CM for discharge planning GI prophylaxis Home medications as indicated Other orders as listed above Routine AM labs She is a full code. Her PCP is Dr. [place]. Her tilting saw operator is Dr. Handy. From a hospitalist standpoint Bhumika is doing pretty well. She has been up ambulating and working with therapies. She has urinated. Her pain is controlled. Her labs and vital signs remain stable. Unfortunately we were unable to wean her off of oxygen. RT qualified her for 2L continuous O2. Suspect this is due to pain medications and history of smoking. Recommend she follow-up with PCP within 7-10 days of discharge to re-check oxygen saturations. She is cleared for discharge pending primary team and PT/OT agreement. Thank you for allowing us to participate in the care of this patient!!
--- NOTE | 2019-11-20 08:28 | PCM.SURGPN ---
- General Info Date of Service: 11/20/19 POD#: 1 Functional Status: Reports: Pain Controlled, Tolerating Diet, Ambulating, Urinating, Incentive Spirometry - Patient Data Vitals - Most Recent: Last Vital Signs Temp 98.1 F 11/20/19 03:49 Pulse 98 11/20/19 03:49 Resp 16 11/20/19 03:49 BP 148/60 H 11/20/19 03:49 Pulse Ox 95 11/20/19 03:49 Weight - Most Recent: 163 lb 12.8 oz I&O - Last 24 Hours: Intake & Output 11/19/19 11/20/19 11/20/19 22:59 06:59 14:59 Intake Total 650 Output Total 400 Balance 250 Lab Results Last 24 Hrs: Laboratory Results - last 24 hr 11/20/19 11/20/19 Range/Units 05:04 05:04 WBC 6.70 (3.98-10.04) K/mm3 RBC 3.87 L (3.98-5.22) M/mm3 Hgb 11.3 (11.2-15.7) gm/dl Hct 36.8 (34.1-44.9) % MCV 95.1 H (79.4-94.8) fl MCH 29.2 (25.6-32.2) pg MCHC 30.7 L (32.2-35.5) g/dl RDW Std Deviation 41.7 (36.4-46.3) fL Plt Count 130 L (182-369) K/mm3 MPV 10.4 (9.4-12.3) fl Sodium 138 (136-145) mEq/L Potassium 3.9 (3.5-5.1) mEq/L Chloride 103 (98-107) mEq/L Carbon Dioxide 29 (21-32) mEq/L Anion Gap 9.9 (5-15) BUN 20 H (7-18) mg/dL Creatinine 0.9 (0.55-1.02) mg/dL Est Cr Clr Drug Dosing 38.20 mL/min Estimated GFR (MDRD) > 60 (>60) mL/min BUN/Creatinine Ratio 22.2 H (14-18) Glucose 134 H (83-115) mg/dL Calcium 8.6 (8.5-10.1) mg/dL Total Bilirubin 0.5 (0.2-1.0) mg/dL AST 23 (15-37) U/L ALT 23 (14-59) U/L Alkaline Phosphatase 48 (46-116) U/L Total Protein 6.3 L (6.4-8.2) g/dl Albumin 3.0 L (3.4-5.0) g/dl Globulin 3.3 gm/dL Albumin/Globulin Ratio 0.9 L (1-2) Med Orders - Current: Current Medications Aspirin (Ecotrin) 325 mg PO BID [facility] Bisacodyl (Dulcolax) 5 mg PO DAILY PRN PRN Reason: Constipation Cholecalciferol (Vitamin D3) 25 mcg PO DAILY [facility] Cyclobenzaprine HCl (Flexeril) 5 mg PO TID PRN PRN Reason: Spasms Last Admin: 11/19/19 20:33 Dose: 5 mg Documented by: Docusate Sodium (Colace) 100 mg PO BID [facility] Last Admin: 11/19/19 20:33 Dose: 100 mg Documented by: Famotidine (Pepcid) 20 mg PO Q12H [facility] Last Admin: 11/19/19 20:33 Dose: 20 mg Documented by: Cefazolin Sodium/Dextrose 2 gm (/ Premix) 50 mls @ 100 mls/hr IV Q8H [facility] Stop: 11/20/19 09:44 Last Admin: 11/20/19 01:06 Dose: 100 mls/hr Documented by: Ketorolac Tromethamine (Toradol) 15 mg IVPUSH Q6H PRN PRN Reason: Pain Magnesium Hydroxide (Milk Of Magnesia) 30 ml PO BID PRN PRN Reason: Constipation Metoprolol Tartrate (Lopressor) 50 mg PO BID [facility] Last Admin: 11/19/19 20:32 Dose: 50 mg Documented by: Morphine Sulfate (Morphine) 2 mg IVPUSH Q2H PRN PRN Reason: Breakthrough Pain Naloxone HCl (Narcan) 0.1 mg IVPUSH Q5M PRN PRN Reason: Oversedation Ondansetron HCl (Zofran) 4 mg IVPUSH Q6H PRN PRN Reason: Nausea/Vomiting Oxycodone/Acetaminophen (Percocet 325-5 Mg) 1 - 2 tab PO Q4H PRN PRN Reason: Pain Last Admin: 11/20/19 01:10 Dose: 2 tab Documented by: Pantoprazole Sodium (Protonix) 40 mg PO DAILY [facility] Polyethylene Glycol (Miralax) 17 gm PO DAILY [facility] Rosuvastatin Calcium (Crestor) 10 mg PO DAILY [facility] Saccharomyces Boulardii (Florastor) 1 mg PO DAILY [facility] Senna (Senna) 8.6 mg PO BID PRN PRN Reason: Constipation Discontinued Medications Acetaminophen (Tylenol) 975 mg PO ONETIME [facility] Stop: 11/19/19 14:00 Last Admin: 11/19/19 09:12 Dose: 975 mg Documented by: Bupivacaine HCl (Sensorcaine-Mpf 0.25%) Confirm Administered Dose 30 ml .ROUTE .STK-MED ONE Stop: 11/19/19 09:09 Last Admin: 11/19/19 12:00 Dose: 30 ml Documented by: Cefazolin Sodium (Ancef) Confirm Administered Dose 2 gm .ROUTE .STK-MED ONE Stop: 11/19/19 09:02 Last Admin: 11/19/19 11:56 Dose: 2 gm Documented by: Cefazolin Sodium (Ancef) Confirm Administered Dose 2 gm .ROUTE .STK-MED ONE Stop: 11/19/19 09:09 Morphine Sulfate 8 mg/Epinephrine HCl 0.3 mg/Cefuroxime Sodium 750 mg/Ketorolac Tromethamine 30 mg/Sodium Chloride 7.9 ml 0 mg .XX ASDIRECTED PRN PRN Reason: Pain Stop: 11/19/19 23:00 Last Admin: 11/19/19 12:00 Dose: 788.3 mg Documented by: Epinephrine HCl (Adrenalin) Confirm Administered Dose 1 mg .ROUTE .STK-MED ONE Stop: 11/19/19 07:12 Fentanyl (Sublimaze) Confirm Administered Dose 100 mcg .ROUTE .STK-MED ONE Stop: 11/19/19 08:55 Fentanyl (Sublimaze) Confirm Administered Dose 100 mcg .ROUTE .STK-MED ONE Stop: 11/19/19 11:24 Fentanyl (Sublimaze) 50 mcg IVPUSH Q5M PRN PRN Reason: Pain Stop: 11/19/19 15:00 Last Admin: 11/19/19 13:33 Dose: 50 mcg Documented by: Fentanyl (Sublimaze) 50 mcg IVPUSH Q5M PRN PRN Reason: Pain Stop: 11/19/19 15:00 Hydromorphone HCl (Dilaudid) Confirm Administered Dose 0.5 mg .ROUTE .STK-MED ONE Stop: 11/19/19 11:27 Hydromorphone HCl (Dilaudid) 0.5 mg IVPUSH Q10M PRN PRN Reason: Pain (severe 7-10) Stop: 11/19/19 15:00 Last Admin: 11/19/19 13:07 Dose: 0.5 mg Documented by: Lactated Ringer's (Ringers, Lactated) 1,000 mls @ 125 mls/hr IV ASDIRECTED [facility] Stop: 11/19/19 23:00 Last Admin: 11/19/19 09:45 Dose: 125 mls/hr Documented by: Lidocaine HCl (Xylocaine-Mpf 1%) Confirm Administered Dose 4 mls @ as directed .ROUTE .STiCracked-MED ONE Stop: 11/19/19 08:55 Iodine (Iodine 2% Mild Tincture) Confirm Administered Dose 30 ml .ROUTE .[employer]-MED ONE Stop: 11/19/19 09:09 Last Admin: 11/19/19 11:54 Dose: 18 ml Documented by: Lidocaine/Sodium Bicarbonate (Buffered Lidocaine 1% In Ns 8.4%) 0.25 ml IDERM ONETIME PRN PRN Reason: Prior to IV Start Stop: 11/19/19 18:00 Last Admin: 11/19/19 09:57 Dose: 0.25 ml Documented by: Losartan Potassium (Cozaar) 25 mg PO DAILY [facility] Meperidine HCl (Meperidine) 12.5 mg IVPUSH STAT STA Stop: 11/19/19 13:35 Last Admin: 11/20/19 02:01 Dose: Not Given Documented by: Midazolam HCl (Versed 1 Mg/Ml) Confirm Administered Dose 2 mg .ROUTE .STiCracked-MED ONE Stop: 11/19/19 08:55 Non-Formulary Medication (Ubidecarenone) 100 mg PO DAILY [facility] Ondansetron HCl (Zofran) 4 mg IVPUSH ONETIME PRN PRN Reason: Nausea/Vomiting Stop: 11/19/19 15:00 Ondansetron HCl (Zofran) 4 mg IVPUSH ONETIME PRN PRN Reason: Nausea/Vomiting Stop: 11/19/19 15:00 Oxycodone HCl (Oxycontin) 10 mg PO ONETIME [facility] Stop: 11/19/19 14:00 Last Admin: 11/19/19 09:13 Dose: 10 mg Documented by: Pregabalin (Lyrica) 50 mg PO ONETIME [facility] Stop: 11/19/19 14:00 Last Admin: 11/19/19 09:13 Dose: 50 mg Documented by: Propofol (Diprivan 20 Ml) Confirm Administered Dose 200 mg .ROUTE .STK-MED ONE Stop: 11/19/19 08:55 Propofol (Diprivan 20 Ml) Confirm Administered Dose 200 mg .ROUTE .STK-MED ONE Stop: 11/19/19 11:19 Ropivacaine (Naropin 0.5%) Confirm Administered Dose 30 ml .ROUTE .STK-MED ONE Stop: 11/19/19 07:12 Sodium Chloride (Saline Flush) 10 ml FLUSH ASDIRECTED PRN PRN Reason: Keep Vein Open Stop: 11/19/19 18:00 Tranexamic Acid (Cyklokapron) Confirm Administered Dose 1,000 mg .ROUTE .STK-MED ONE Stop: 11/19/19 09:08 Last Admin: 11/19/19 12:03 Dose: 1,000 mg Documented by: Vancomycin HCl (Vancomycin) Confirm Administered Dose 1 gm .ROUTE .STK-MED ONE Stop: 11/19/19 09:08 Last Admin: 11/19/19 12:03 Dose: 1 gm Documented by: - Exam Wound/Incisions: Dressing Dry and Intact General: Alert, Cooperative, No Acute Distress Lungs: Normal Respiratory Effort Extremities: Other (NVS intact for BLE. Diego's negative.) Sepsis Event Note - Evaluation Sepsis Screening Result: No Definite Risk - Focused Exam Vital Signs: Vital Signs Temp Temp Pulse Pulse Resp BP BP 11/20/19 03:49 98.1 F 98 16 148/60 H 11/20/19 00:00 97.6 F 82 16 143/59 H 11/19/19 20:32 83 136/59 L Pulse Ox 11/20/19 03:49 95 11/20/19 00:00 98 11/19/19 20:32 Date Exam was Performed: 11/20/19 Time Exam was Performed: 08:27 - Problem List Review Problem List Initiated/Reviewed/Updated: Yes - My Orders Last 24 Hours: Active Orders 24 hr Category Date Time Status Communication Order [RC] ASDIRECTED Care 11/19/19 12:54 Active Notify Provider [RC] ASDIRECTED Care 11/19/19 12:55 Active Oxygen Therapy [RC] ASDIRECTED Care 11/19/19 12:56 Active Pulse Oximetry [RC] ASDIRECTED Care 11/19/19 12:56 Active Ready for Discharge [RC] PER UNIT ROUTINE Care 11/20/19 08:27 Ordered [employer] Diet [DIET] Diet 11/19/19 Lunch Active Aspirin [Ecotrin] Med 11/20/19 09:00 Active 325 mg PO BID Cholecalciferol (Vitamin D3) [Vitamin D3] Med 11/20/19 09:00 Active 25 mcg PO DAILY Docusate Sodium [Colace] Med 11/19/19 21:00 Active 100 mg PO BID Famotidine [Pepcid] Med 11/19/19 21:00 Active 20 mg PO Q12H Metoprolol Tartrate [Lopressor] Med 11/19/19 21:00 Active 50 mg PO BID Pantoprazole [ProTONIX] Med 11/20/19 09:00 Active 40 mg PO DAILY Rosuvastatin [Crestor] Med 11/20/19 09:00 Active 10 mg PO DAILY Saccharomyces Boulardii [Florastor] Med 11/20/19 09:00 Active 1 mg PO DAILY ceFAZolin [Ancef] 2 gm Med 11/19/19 17:15 Active Premix Bag 1 bag IV Q8H polyethylene glycoL 3350 [MiraLAX] Med 11/20/19 09:00 Active 17 gm PO DAILY Pulse Oximetry Continuous Monitoring [OM.PC] Routine Oth 11/19/19 14:53 Active Medication Orders Aspirin (Ecotrin) 325 mg PO BID [facility] Bisacodyl (Dulcolax) 5 mg PO DAILY PRN PRN Reason: Constipation Cholecalciferol (Vitamin D3) 25 mcg PO DAILY [facility] Cyclobenzaprine HCl (Flexeril) 5 mg PO TID PRN PRN Reason: Spasms Last Admin: 11/19/19 20:33 Dose: 5 mg Documented by: BING Docusate Sodium (Colace) 100 mg PO BID [facility] Last Admin: 11/19/19 20:33 Dose: 100 mg Documented by: BING Famotidine (Pepcid) 20 mg PO Q12H [facility] Last Admin: 11/19/19 20:33 Dose: 20 mg Documented by: BING Cefazolin Sodium/Dextrose 2 gm (/ Premix) 50 mls @ 100 mls/hr IV Q8H [facility] Stop: 11/20/19 09:44 Last Admin: 11/20/19 01:06 Dose: 100 mls/hr Documented by: Infusion: 11/19/19 18:20 Dose: 100 mls/hr Documented by: Admin: 11/19/19 17:50 Dose: 100 mls/hr Documented by: WINNIE Ketorolac Tromethamine (Toradol) 15 mg IVPUSH Q6H PRN PRN Reason: Pain Magnesium Hydroxide (Milk Of Magnesia) 30 ml PO BID PRN PRN Reason: Constipation Metoprolol Tartrate (Lopressor) 50 mg PO BID [facility] Last Admin: 11/19/19 20:32 Dose: 50 mg Documented by: BING Morphine Sulfate (Morphine) 2 mg IVPUSH Q2H PRN PRN Reason: Breakthrough Pain Naloxone HCl (Narcan) 0.1 mg IVPUSH Q5M PRN PRN Reason: Oversedation Ondansetron HCl (Zofran) 4 mg IVPUSH Q6H PRN PRN Reason: Nausea/Vomiting Oxycodone/Acetaminophen (Percocet 325-5 Mg) 1 - 2 tab PO Q4H PRN PRN Reason: Pain Last Admin: 11/20/19 01:10 Dose: 2 tab Documented by: Admin: 11/19/19 17:56 Dose: 2 tab Documented by: Admin: 11/19/19 13:46 Dose: 2 tab Documented by: LUZ Pantoprazole Sodium (Protonix) 40 mg PO DAILY [facility] Polyethylene Glycol (Miralax) 17 gm PO DAILY [facility] Rosuvastatin Calcium (Crestor) 10 mg PO DAILY [facility] Saccharomyces Boulardii (Florastor) 1 mg PO DAILY [facility] Senna (Senna) 8.6 mg PO BID PRN PRN Reason: Constipation - Assessment Assessment (Free Text/Narrative):: POD#1 - right TKA - Plan Plan (Free Text/Narrative):: 1. Hgb 11.3. 2. Discharge to home today. The pt will have the assistance of her friend. 3. 325mg ASA PO BID, frequent mobility, TEDs. 4. Outpatient therapy. The pt's case was discussed with Dr. Branch today.
--- NOTE | 2019-11-20 08:59 | PCM.DCSUM1 ---
Discharge Summary - Hospital Course Brief History: Bhumika is a 78 yo female who underwent right TKA with Dr. Branch on 11-19-2019. The procedure was completed under spinal and general anesthesia. A post-operative adductor canal block was provided. The pt tolerated the procedure well and was admitted to the Medical-Surgical Unit. Medical management was provided by the Hospitalist service. The pt's Hospital course was remarkable for need for close monitoring of O2 saturation and pain management. The pt's Hgb on POD#1 was 11.3. On POD#1, 325mg ASA PO BID was initiated for VTE prophylaxis. SCDs and TEDs were also ordered. A Mepilex dressing was placed at the incision site at the time of surgery and remained clean and dry. The pt participated in P.T. and O.T. and progressed well. The pt was allowed to WBAT and used a FWW for mobility. On POD#1, the pt was deemed appropriate to discharge to home with her friend and with home O2. The pt was instructed to follow-up with her PCP regarding home O2 use. - Discharge Data Discharge Date: 11/20/19 Discharge Disposition: Home, Self-Care 01 Condition: Good - Referral to Home Health Primary Care Physician: PCP Not In Area - Patient Summary/Data Consults: Consultations 11/19/19 06:18 OT Evaluation and Treatment [CONS] Routine PT Evaluation and Treatment [CONS] Routine 11/19/19 06:19 Consult to Physician [CONS] Routine - Patient Instructions Diet: Usual Diet as Tolerated Activity: Apply Ice, As Tolerated, Elevate Extremity, Full Weight Bearing Driving: Do Not Drive Showering/Bathing: May Shower Wound/Incision Care: Keep Operative Site/Wound Site Clean and Dry, Do NOT Change Dressing Notify Provider of: Fever, Increased Pain, Swelling and Redness, Drainage, Nausea and/or Vomiting Other/Special Instructions: Please get up and moving around EVERY HOUR while awake. This helps to prevent blood clots. Please use your walker and have help with mobility as needed. Take a short walk in your home every hour while awake. Please take 325mg aspirin TWICE daily. The aspirin is being used for blood clot prevention and not for pain management so please do not miss a dose of the medication. You could use a medication like Pepcid or Tagamet and a medication like Prilosec or Nexium to protect your stomach while you are using the aspirin. At home, please complete the exercises that you learned during the Hospital stay. Schedule for physical therapy. Use the pain medication as needed. The medication may cause drowsiness and constipation. Contact your primary care provider for instructions if you are constipated. You may use a stool softener like docusate sodium or Colace 100mg twice daily and/or a laxative like Miralax daily for constipation. Increase your water and fiber intake while you are using the pain medication. Discontinue use of the pain medication as soon as able. Please do not use other medications that may cause drowsiness (other pain medications, anxiety pills, cold medications, sleeping pills, etc) while using the prescription pain medication. Do not use alcohol while using the pain medication. You may use acetaminophen or Tylenol for pain management, however, please ensure you are not using over 4000 mg or 4 grams of acetaminophen per day from all sources. Your pain medication has 325mg of acetaminophen per tablet. At this time, please do not use ibuprofen (Motrin, Advil) or naproxen (Aleve) for pain management as you are using the aspirin. When the aspirin course is completed in 4 to 6 weeks, you could use ibuprofen or naproxen for pain management (if this is allowed by your primary care provider). Wear the WALI hose during the day and you may remove these at night. Elevate the limb to decrease swelling. Place ice to the area often. Place a towel between your skin and the blue pad. Use the incentive spirometer often. Take deep breaths throughout the day. Please keep the dressing in place until follow-up. Notify the Clinic if the dressing becomes saturated. Increase your protein intake while you are healing. If your primary care provider has you monitoring your blood sugars, please closely monitor the blood sugars and notify your primary care provider with abnormal values. Elevated blood sugars increases the risk of infection. Call the Clinic with questions or concerns - [phone] and leave a message for the nurse. - Discharge Plan *PRESCRIPTION DRUG MONITORING PROGRAM REVIEWED*: No *COPY OF PRESCRIPTION DRUG MONITORING REPORT IN PATIENT KENYA: No Prescriptions/Med Rec: Aspirin [Ecotrin EC] 325 mg PO BID #84 tab.ec Cyclobenzaprine [Flexeril] 5 mg PO BID PRN #20 tablet PRN Reason: Spasms Acetaminophen/oxyCODONE [Percocet 325-5 MG] 1 - 2 tab PO Q4H PRN #60 tablet PRN Reason: Pain Home Medications: Home Meds Arginine HCl [l-Arginine] 1,000 mg PO BID 11/16/19 [History] Cholecalciferol (Vitamin D3) [Vitamin D3] 1,000 unit PO DAILY 11/16/19 [History] Denosumab [Prolia] 1 dose SQ ASDIRECTED 11/16/19 [History] Glucosamine/D3/Boswellia Marlen [Osteo Bi-Flex Caplet] 1 tab PO DAILY 11/16/19 [History] Lactobacillus Acidophilus [Probiotic] 1 cap PO DAILY 11/16/19 [History] Losartan [Cozaar] 25 mg PO DAILY 11/16/19 [History] Metoprolol Tartrate 50 mg PO BID 11/16/19 [History] Multivitamin 1 each PO DAILY 11/16/19 [History] Pantoprazole Sodium [Protonix] 40 mg PO DAILY 11/16/19 [History] Ubidecarenone [Coq-10] 100 mg PO DAILY 11/16/19 [History] atorvaSTATin [Lipitor] 40 mg PO DAILY 11/16/19 [History] polyethylene glycoL 3350 [MiraLAX] 17 gm PO DAILY 11/16/19 [History] Acetaminophen/oxyCODONE [Percocet 325-5 MG] 1 - 2 tab PO Q4H PRN #60 tablet 11/20/19 [Rx] Aspirin [Ecotrin EC] 325 mg PO BID #84 tab.ec 11/20/19 [Rx] Cyclobenzaprine [Flexeril] 5 mg PO BID PRN #20 tablet 11/20/19 [Rx] Docusate Sodium [Colace] 100 mg PO BID cap 11/20/19 [Rx] Famotidine [Pepcid] 20 mg PO Q12H tablet 11/20/19 [Rx] Magnesium Hydroxide [Milk of Magnesia] 30 ml PO BID PRN cup 11/20/19 [Rx] Sennosides [Senna] 8.6 mg PO BID PRN tablet 11/20/19 [Rx] bisacodyL [Dulcolax] 5 mg PO DAILY PRN tablet 11/20/19 [Rx] Patient Handouts: Total Knee Replacement, [id number] Referrals: Laumb,Izzy J, PA-C [Physician Well Drill Operator Rotary Drill] - (1. Follow-up with JAMES العلي on Wednesday, November 27, 2019 at 11:30am in [place]. 2. Follow-up with on Thursday, December 05, 2019 at 9:15am in [place]. 3. Follow-up with JAMES العلي on Wednesday, January 01, 2020 at 11:30am in [place].) - Discharge Summary/Plan Comment DC Time >30 min.: No - Patient Data Vitals - Most Recent: Last Vital Signs Temp 98.1 F 11/20/19 03:49 Pulse 98 11/20/19 03:49 Resp 16 11/20/19 03:49 BP 148/60 H 11/20/19 03:49 Pulse Ox 95 11/20/19 03:49 Weight - Most Recent: 163 lb 12.8 oz I&O - Last 24 hours: Intake & Output 11/19/19 11/20/19 11/20/19 22:59 06:59 14:59 Intake Total 650 Output Total 400 Balance 250 Lab Results - Last 24 hrs: Laboratory Results - last 24 hr 11/20/19 11/20/19 Range/Units 05:04 05:04 WBC 6.70 (3.98-10.04) K/mm3 RBC 3.87 L (3.98-5.22) M/mm3 Hgb 11.3 (11.2-15.7) gm/dl Hct 36.8 (34.1-44.9) % MCV 95.1 H (79.4-94.8) fl MCH 29.2 (25.6-32.2) pg MCHC 30.7 L (32.2-35.5) g/dl RDW Std Deviation 41.7 (36.4-46.3) fL Plt Count 130 L (182-369) K/mm3 MPV 10.4 (9.4-12.3) fl Sodium 138 (136-145) mEq/L Potassium 3.9 (3.5-5.1) mEq/L Chloride 103 (98-107) mEq/L Carbon Dioxide 29 (21-32) mEq/L Anion Gap 9.9 (5-15) BUN 20 H (7-18) mg/dL Creatinine 0.9 (0.55-1.02) mg/dL Est Cr Clr Drug Dosing 38.20 mL/min Estimated GFR (MDRD) > 60 (>60) mL/min BUN/Creatinine Ratio 22.2 H (14-18) Glucose 134 H (83-115) mg/dL Calcium 8.6 (8.5-10.1) mg/dL Total Bilirubin 0.5 (0.2-1.0) mg/dL AST 23 (15-37) U/L ALT 23 (14-59) U/L Alkaline Phosphatase 48 (46-116) U/L Total Protein 6.3 L (6.4-8.2) g/dl Albumin 3.0 L (3.4-5.0) g/dl Globulin 3.3 gm/dL Albumin/Globulin Ratio 0.9 L (1-2) Med Orders - Current: Current Medications Aspirin (Ecotrin) 325 mg PO BID [facility] Bisacodyl (Dulcolax) 5 mg PO DAILY PRN PRN Reason: Constipation Cholecalciferol (Vitamin D3) 25 mcg PO DAILY [facility] Cyclobenzaprine HCl (Flexeril) 5 mg PO TID PRN PRN Reason: Spasms Last Admin: 11/19/19 20:33 Dose: 5 mg Documented by: Docusate Sodium (Colace) 100 mg PO BID [facility] Last Admin: 11/19/19 20:33 Dose: 100 mg Documented by: Famotidine (Pepcid) 20 mg PO Q12H [facility] Last Admin: 11/19/19 20:33 Dose: 20 mg Documented by: Cefazolin Sodium/Dextrose 2 gm (/ Premix) 50 mls @ 100 mls/hr IV Q8H [facility] Stop: 11/20/19 09:44 Last Admin: 11/20/19 01:06 Dose: 100 mls/hr Documented by: Ketorolac Tromethamine (Toradol) 15 mg IVPUSH Q6H PRN PRN Reason: Pain Magnesium Hydroxide (Milk Of Magnesia) 30 ml PO BID PRN PRN Reason: Constipation Metoprolol Tartrate (Lopressor) 50 mg PO BID [facility] Last Admin: 11/19/19 20:32 Dose: 50 mg Documented by: Morphine Sulfate (Morphine) 2 mg IVPUSH Q2H PRN PRN Reason: Breakthrough Pain Naloxone HCl (Narcan) 0.1 mg IVPUSH Q5M PRN PRN Reason: Oversedation Ondansetron HCl (Zofran) 4 mg IVPUSH Q6H PRN PRN Reason: Nausea/Vomiting Oxycodone/Acetaminophen (Percocet 325-5 Mg) 1 - 2 tab PO Q4H PRN PRN Reason: Pain Last Admin: 11/20/19 01:10 Dose: 2 tab Documented by: Pantoprazole Sodium (Protonix) 40 mg PO DAILY [facility] Polyethylene Glycol (Miralax) 17 gm PO DAILY [facility] Rosuvastatin Calcium (Crestor) 10 mg PO DAILY [facility] Saccharomyces Boulardii (Florastor) 1 mg PO DAILY [facility] Senna (Senna) 8.6 mg PO BID PRN PRN Reason: Constipation Discontinued Medications Acetaminophen (Tylenol) 975 mg PO ONETIME [facility] Stop: 11/19/19 14:00 Last Admin: 11/19/19 09:12 Dose: 975 mg Documented by: Bupivacaine HCl (Sensorcaine-Mpf 0.25%) Confirm Administered Dose 30 ml .ROUTE .STK-MED ONE Stop: 11/19/19 09:09 Last Admin: 11/19/19 12:00 Dose: 30 ml Documented by: Cefazolin Sodium (Ancef) Confirm Administered Dose 2 gm .ROUTE .STK-MED ONE Stop: 11/19/19 09:02 Last Admin: 11/19/19 11:56 Dose: 2 gm Documented by: Cefazolin Sodium (Ancef) Confirm Administered Dose 2 gm .ROUTE .STK-MED ONE Stop: 11/19/19 09:09 Morphine Sulfate 8 mg/Epinephrine HCl 0.3 mg/Cefuroxime Sodium 750 mg/Ketorolac Tromethamine 30 mg/Sodium Chloride 7.9 ml 0 mg .XX ASDIRECTED PRN PRN Reason: Pain Stop: 11/19/19 23:00 Last Admin: 11/19/19 12:00 Dose: 788.3 mg Documented by: Epinephrine HCl (Adrenalin) Confirm Administered Dose 1 mg .ROUTE .STK-MED ONE Stop: 11/19/19 07:12 Fentanyl (Sublimaze) Confirm Administered Dose 100 mcg .ROUTE .STK-MED ONE Stop: 11/19/19 08:55 Fentanyl (Sublimaze) Confirm Administered Dose 100 mcg .ROUTE .STK-MED ONE Stop: 11/19/19 11:24 Fentanyl (Sublimaze) 50 mcg IVPUSH Q5M PRN PRN Reason: Pain Stop: 11/19/19 15:00 Last Admin: 11/19/19 13:33 Dose: 50 mcg Documented by: Fentanyl (Sublimaze) 50 mcg IVPUSH Q5M PRN PRN Reason: Pain Stop: 11/19/19 15:00 Hydromorphone HCl (Dilaudid) Confirm Administered Dose 0.5 mg .ROUTE .STK-MED ONE Stop: 11/19/19 11:27 Hydromorphone HCl (Dilaudid) 0.5 mg IVPUSH Q10M PRN PRN Reason: Pain (severe 7-10) Stop: 11/19/19 15:00 Last Admin: 11/19/19 13:07 Dose: 0.5 mg Documented by: Lactated Ringer's (Ringers, Lactated) 1,000 mls @ 125 mls/hr IV ASDIRECTED RADU Stop: 11/19/19 23:00 Last Admin: 11/19/19 09:45 Dose: 125 mls/hr Documented by: Lidocaine HCl (Xylocaine-Mpf 1%) Confirm Administered Dose 4 mls @ as directed .ROUTE .STK-MED ONE Stop: 11/19/19 08:55 Iodine (Iodine 2% Mild Tincture) Confirm Administered Dose 30 ml .ROUTE .STK-MED ONE Stop: 11/19/19 09:09 Last Admin: 11/19/19 11:54 Dose: 18 ml Documented by: Lidocaine/Sodium Bicarbonate (Buffered Lidocaine 1% In Ns 8.4%) 0.25 ml IDERM ONETIME PRN PRN Reason: Prior to IV Start Stop: 11/19/19 18:00 Last Admin: 11/19/19 09:57 Dose: 0.25 ml Documented by: Losartan Potassium (Cozaar) 25 mg PO DAILY [facility] Meperidine HCl (Meperidine) 12.5 mg IVPUSH STAT STA Stop: 11/19/19 13:35 Last Admin: 11/20/19 02:01 Dose: Not Given Documented by: Midazolam HCl (Versed 1 Mg/Ml) Confirm Administered Dose 2 mg .ROUTE .STK-MED ONE Stop: 11/19/19 08:55 Non-Formulary Medication (Ubidecarenone) 100 mg PO DAILY [facility] Ondansetron HCl (Zofran) 4 mg IVPUSH ONETIME PRN PRN Reason: Nausea/Vomiting Stop: 11/19/19 15:00 Ondansetron HCl (Zofran) 4 mg IVPUSH ONETIME PRN PRN Reason: Nausea/Vomiting Stop: 11/19/19 15:00 Oxycodone HCl (Oxycontin) 10 mg PO ONETIME [facility] Stop: 11/19/19 14:00 Last Admin: 11/19/19 09:13 Dose: 10 mg Documented by: Pregabalin (Lyrica) 50 mg PO ONETIME [facility] Stop: 11/19/19 14:00 Last Admin: 11/19/19 09:13 Dose: 50 mg Documented by: Propofol (Diprivan 20 Ml) Confirm Administered Dose 200 mg .ROUTE .STK-MED ONE Stop: 11/19/19 08:55 Propofol (Diprivan 20 Ml) Confirm Administered Dose 200 mg .ROUTE .STK-MED ONE Stop: 11/19/19 11:19 Ropivacaine (Naropin 0.5%) Confirm Administered Dose 30 ml .ROUTE .STK-MED ONE Stop: 11/19/19 07:12 Sodium Chloride (Saline Flush) 10 ml FLUSH ASDIRECTED PRN PRN Reason: Keep Vein Open Stop: 11/19/19 18:00 Tranexamic Acid (Cyklokapron) Confirm Administered Dose 1,000 mg .ROUTE .STK-MED ONE Stop: 11/19/19 09:08 Last Admin: 11/19/19 12:03 Dose: 1,000 mg Documented by: Vancomycin HCl (Vancomycin) Confirm Administered Dose 1 gm .ROUTE .STK-MED ONE Stop: 11/19/19 09:08 Last Admin: 11/19/19 12:03 Dose: 1 gm Documented by:
[2019-11-20] MEDS ORDERED: Losartan 25 MG Tab PO SCH (09:00)
[2019-11-20] MEDS ORDERED: Polyethylene Glycol 3350 Powder 17 GM Packet PO SCH (09:00)
[2019-11-20] MEDS ORDERED: Aspirin 325 MG Tab.EC PO SCH (09:00)
[2019-11-20] MEDS ORDERED: Non-Formulary Medication 1 Each (Ubidecarenone 100 MG) PO SCH (09:00)
[2019-11-20] MEDS ORDERED: Saccharomyces Boulardii (Probiotic) 250 MG Cap PO SCH (09:00)
[2019-11-20] MEDS ORDERED: Cholecalciferol (Vitamin D3) 25 MCG Tab PO SCH (09:00)
[2019-11-20] MEDS ORDERED: Pantoprazole 40 MG Tab.CR PO SCH (09:00)
[2019-11-20] MEDS ORDERED: Rosuvastatin 10 MG Tab PO SCH (09:00)
[2019-11-20] MEDS: Metoprolol Tartrate 50 MG Tab PO SCH (09:46)
[2019-11-20] MEDS: Docusate Sodium 100 MG Cap PO SCH (09:51)
[2019-11-20] MEDS: Famotidine 20 MG Tab PO SCH (09:51)
--- NOTE | 2019-11-20 12:35 | PCM48HPAN ---
Post Anesthesia Note - EVALUATION WITHIN 48HRS OF ANESTHETIC Vital Signs in Normal Range: Yes Patient Participated in Evaluation: Yes Respiratory Function Stable: Yes Airway Patent: Yes Cardiovascular Function Stable: Yes Hydration Status Stable: Yes Pain Control Satisfactory: Yes Nausea and Vomiting Control Satisfactory: Yes Mental Status Recovered: Yes Vital Signs: Last Vital Signs Temp 37.3 C 11/20/19 12:10 Pulse 96 11/20/19 12:10 Resp 24 H 11/20/19 12:10 BP 145/63 H 11/20/19 12:10 Pulse Ox 93 L 11/20/19 12:10
--- NOTE | 2019-11-26 07:39 | PCM.OPNOTE ---
- General Post-Op/Procedure Note Date of Surgery/Procedure: 11/19/19 Operative Procedure(s): right total knee arthroplasty Pre Op Diagnosis: right knee osteoarthrosis Post-Op Diagnosis: Same Anesthesia Technique: Local, MAC, Spinal Primary Surgeon: Neel Barnch Anesthesia Provider: Lainey Buckner Manager Access: Izzy Jordan Manager Access: Perlita Olvera in mLs: 5 Complications: None Condition: Good Free Text/Narrative:: / 11mm TS 29x9
--- NOTE | 2019-11-26 08:32 | OR ---
DATE OF OPERATION: 11/19/2019 SURGEON: Neel Branch MD OPERATION PERFORMED: Right total knee arthroplasty. PREOPERATIVE DIAGNOSIS: Right knee osteoarthrosis. POSTOPERATIVE DIAGNOSIS: Right knee osteoarthrosis. ANESTHESIA: Local MAC with spinal. ANESTHESIA PROVIDER: Caroline Barajas. NEUROPSYCHOLOGIST: Izzy Jordan PA-C; and Perlita Olvera LPN. ESTIMATED BLOOD LOSS: 5 mL. COMPLICATIONS: None. CONDITION: Stable. IMPLANTS: 1. Derian size 4 cemented PS femur. 2. Derian size 4 cemented Lennon tibial baseplate. 3. [place] size 4 11 mm TS polyethylene insert. 4. [place] size 29 x 9 mm cemented asymmetric patella. DESCRIPTION OF PROCEDURE: The patient was identified in the preop holding area. Proper site was marked and identified by the surgeon. The patient was taken back to the operating theater. After adequate anesthesia, the patient's right lower extremity had a nonsterile tourniquet applied and it was sterilely prepped and draped in the usual sterile fashion. OR time-out was performed. The patient received 2 g IV Ancef. At this time, the right lower extremity was exsanguinated. Tourniquet was insufflated to 300 mmHg. Standard medial parapatellar incision was made. Medial parapatellar arthrotomy was created. Deep fibers of the MCL were raised and anterior fat pad was resected. At this time, attention was turned to the patella. Patella measured 21, it was resected to a 13 for a 29 x 9 mm patella. Drill holes were then drilled and found to be in adequate position. The drill was then drilled in the distal femur and the intramedullary distal femoral cutting guide was then placed. 10 mm was resected off the distal femur and was found to be an adequate resection. Sizing guide was placed. It was found to be a size 4 cemented PS femur that was shown on the implant record at the beginning of this dictation. The drill holes were drilled for the epicondylar axis using Whitesides line and epicondyles as reference. At this time, the 4-in-1 cutting block was placed. An anterior posterior and anterior and posterior chamfer cuts were then completed. Box cut was completed at this time. Attention was turned to the tibia. The posterior medial lateral retractors were placed. The extramedullary tibial guide was placed. It was placed in the old footprint of the ACL. It was aligned with the center of the ankle and 0 degrees of slope, 9 mm was then resected off the unaffected side. There was found to be an acceptable reduction. At this time, posterior osteophytes were removed along with medial and lateral meniscus. A trial implant was placed with a correct sized tibia that was mentioned at the beginning of the dictation. A [place] size 4 11 mm TS polyethylene insert was then placed. The patient's knee was brought through range of motion. The patella was tracking centrally and was stable to varus and valgus stress. Alignment was found to be roughly at 0 degrees. The tibia was stamped and drilled in proper rotation. The universal tibial base plate was impacted in place. Next, the [place] size 4 cemented PS femur impacted into place and the Derian size 4 11 mm TS polyethylene insert was placed. The patient's knee was brought into full extension. The patella was then cemented in place at this time. One liter dilute Betadine solution was irrigated through the knee along with 3 L of pulse lavage irrigation with Ancef. Periarticular injection was then completed. The patient's knee was brought through a range of motion. Once the cement had time to set up and it was found to be stable to varus valgus stress, the patella was tracking centrally with full range of motion. At this time, a #2 barbed suture was used for closure of the medial parapatellar arthrotomy. Topical tranexamic acid was placed. 2-0 Vicryl was used subcutaneously, Prineo was used for the skin. The patient tolerated the procedure well and was sent to the PACU in stable condition. MMODAL /[id number] MTDD
== END 2019-11-20 15:00 | disposition home or self-care (01) | DRG 470 ==
LOC: JD.MS 06:24 → EDSTATUS 07:30 → JD.SDS 08:08 → JD.MS 08:09 → JD.SDS 08:09 → JD.MS 13:41 → JD.SDS 13:41 → JD.MS 13:41 → UNDOADMIN 13:41 → UNDODISIN 11-20 15:00
PROVIDERS: ADMIT Orthopaedic Surgery; ATTEND Orthopaedic Surgery
PROC: 0SRC0J9 Replacement of Right Knee Joint with Synthetic Substitute, Cemented, Open Approach (ICD-10-PCS; principal; 2019-11-19)
DX: M17.11 Unilateral primary osteoarthritis, right knee (principal); I44.2 Atrioventricular block, complete; E78.5 Hyperlipidemia, unspecified; I25.10 Atherosclerotic heart disease of native coronary artery without angina pectoris; M81.0 Age-related osteoporosis without current pathological fracture; I10 Essential (primary) hypertension; E66.9 Obesity, unspecified; E03.9 Hypothyroidism, unspecified; M19.012 Primary osteoarthritis, left shoulder; Z96.611 Presence of right artificial shoulder joint; I70.0 Atherosclerosis of aorta; Z11.59 Encounter for screening for other viral diseases; Z87.891 Personal history of nicotine dependence; Z95.0 Presence of cardiac pacemaker; Z88.2 Allergy status to sulfonamides; Z91.048 Other nonmedicinal substance allergy status; Z86.010 Personal history of colon polyps; Z98.41 Cataract extraction status, right eye; Z98.42 Cataract extraction status, left eye; Z98.890 Other specified postprocedural states; Z79.899 Other long term (current) drug therapy; Z95.5 Presence of coronary angioplasty implant and graft; Z79.82 Long term (current) use of aspirin; Z79.890 Hormone replacement therapy; Z95.3 Presence of xenogenic heart valve; Z68.33 Body mass index [BMI] 33.0-33.9, adult
CPT/HCPCS: 01402; 36415; 64450; 73560-26-RT; 73560-RT; 80053; 85027; 87641; 94761; 94762; 97110-GP; 97116-GP; 97161-GP; 97165-GO; 97535-GO; 99211; 99222; 99231; A9270-GY; C1713; C1776; J0171; J0690; J0697; J1170; J1885; J2001; J2250; J2270; J2704; J2795; J3010; J3370; J3490; J7120; U0002

== ENCOUNTER 2020-01-14 08:45 | Inpatient (IN) | payer MEDICARE, OTHER ==
[~2020-01-14 08:45] MED LIST changes: -Bisacodyl 5 MG Tab PO PRN; -Cyclobenzaprine 10 MG Tab PO PRN; -Ketorolac 15 MG/ML SDV IVPUSH PRN; -Magnesium Hydroxide 400 MG/5 ML Susp 30 ML Cup PO PRN; -Morphine 2 MG/ML SYRINGE IVPUSH PRN; -Naloxone 0.4 MG/ML SDV IVPUSH PRN; -Ondansetron 4 MG/2 ML SDV IVPUSH PRN; -Sennosides 8.6 MG Tab PO PRN
[2020-02-11] MEDS ORDERED: Morphine 8 MG, EPINEPHrine 0.3 MG, Cefuroxime 750 MG, Ketorolac 30 MG, Sodium Chloride ... PRN ×5 (06:00)
--- NOTE | 2020-02-15 12:13 | PCM.SN.2 ---
- Free Text/Narrative Note: Left selective femoral nerve block at the adductor canal for post-procedure pain control under US guidance requested by Dr. Branch. Time Out: Start: End: Chart reviewed. Consent signed. Questions answered. Appropriate monitors applied. Time out performed. Left mid-shaft femur identified with ultrasound, scanning medially of femur, the femoral artery in the adductor canal visualized, and the femoral nerve located laterally to the artery. The skin was prepped lateral to the ultrasound probe with chlorahexadine times two. The 21ga 4 insulated block needle was inserted under direct ultrasound guidance into the adductor canal. 25mL of 0.5% ropivacaine with 1:200,000 epinephrine was injected circumferentially around the nerve with intermittent negative aspiration noted. Patient tolerated the procedure well. Sterile technique noted along with sterile gloves, mask, and sterile probe cover. See picture on progress note and vital signs on nurses notes. Block completed in PACU. Car Uribe CRNA
[2020-02-18] MEDS ORDERED: Lactated Ringers 1,000 ML IV SCH (00:01)
[2020-02-18] MEDS ORDERED: Lidocaine 1%/Sod Bicarbonate in NS 8.4% 1 ML Syringe IDERM PRN (00:01)
[2020-02-18] MEDS ORDERED: EPINEPHrine 1 MG/ML SDV ONE (05:25)
[2020-02-18] MEDS ORDERED: Ropivacaine 0.5% 5 MG/ML 30 ML SDV ONE (05:25)
[2020-02-18] MEDS ORDERED: Acetaminophen 325 MG Tab PO SCH ×2 (06:00→07:15)
[2020-02-18] MEDS ORDERED: Morphine 8 MG, EPINEPHrine 0.3 MG, Cefuroxime 750 MG, Ketorolac 30 MG, Sodium Chloride ... PRN ×5 (06:00)
[2020-02-18] MEDS ORDERED: oxyCODONE ER 10 MG TAB.ER PO SCH ×2 (06:00→07:15)
[2020-02-18] MEDS ORDERED: Pregabalin 25 MG Cap PO SCH ×3 (06:00→10:00)
--- NOTE | 2020-02-18 10:43 | PCM.PREANE ---
Preanesthetic Assessment - Anesthesia/Transfusion/Family Hx Anesthesia History: Prior Anesthesia Reaction (SAB 20 ineffective, had to convert LMA) Family History of Anesthesia Reaction: No Transfusion History: No Prior Transfusion(s) - Review of Systems General: No Symptoms Pulmonary: No Symptoms Cardiovascular: No Symptoms Gastrointestinal: No Symptoms Neurological: No Symptoms Other: Reports: None - Physical Assessment NPO Status Date: 02/17/20 NPO Status Time: 22:00 Vital Signs: Last Vital Signs Temp 36.6 C 02/18/20 09:35 Pulse 76 02/18/20 09:35 Resp 16 02/18/20 09:35 BP 137/62 02/18/20 09:35 Pulse Ox 98 02/18/20 09:35 Height: 1.52 m Weight: 72.575 kg ASA Class: 3 Mental Status: Alert & Oriented x3 Airway Class: Mallampati = 1 Dentition: Reports: Normal Dentition Thyro-Mental Finger Breadths: 3 Mouth Opening Finger Breadths: 3 ROM/Head Extension: Full Lungs: Clear to Auscultation, Normal Respiratory Effort Cardiovascular: Regular Rate, Regular Rhythm - Lab Values: Laboratory Last Values MRSA (PCR) Negative 01/04/20 12:27 - Allergies Allergies/Adverse Reactions: Allergies Allergy/AdvReac Type Severity Reaction Status Date / Time adhesive Allergy Blisters Verified 02/15/20 16:34 Sulfa (Sulfonamide Allergy Rash Verified 02/15/20 16:34 Antibiotics) - Anesthesia Plan Beta Nini: Metoprolol Med Last Dose Date: 02/18/20 Med Last Dose Time: 06:30 - Acknowledgements Anesthesia Type Planned: Spinal Pt an Appropriate Candidate for the Planned Anesthesia: Yes Alternatives and Risks of Anesthesia Discussed w Pt/Guardian: Yes Pt/Guardian Understands and Agrees with Anesthesia Plan: Yes PreAnesthesia Questionnaire HEENT History: Reports: Cataract, Impaired Vision, Macular Degeneration Cardiovascular History: Reports: CAD, Stents, Other (See Below) Other Cardiovascular History: left carotid bruit, pacemaker, aortic sclerosis, AV block, Left BBB, aortic valve replacement Respiratory History: Reports: None Gastrointestinal History: Reports: Colon Polyp, Other (See Below) Other Gastrointestinal History: heme + positive, esophagitis, umbilical hernia repair Genitourinary History: Reports: None SHOVEL OILER History: Reports: None, Other (See Below) Other OB/BYN History: vaginal dryness, right breast biopsy Musculoskeletal History: Reports: Osteoarthritis, Osteoporosis, Other (See Below) Other Musculoskeletal History: right toe pain, osteoporosis, left leg fracture Neurological History: Reports: None Psychiatric History: Reports: None Endocrine/Metabolic History: Reports: Hypothyroidism, Obesity/BMI 30+ Hematologic History: Reports: None Immunologic History: Reports: None Oncologic (Cancer) History: Reports: None Dermatologic History: Reports: Other (See Below) Other Dermatologic History: paronychia, onchomycosis, corn/callous - Infectious Disease History Infectious Disease History: Reports: None - Past Surgical History Head Surgeries/Procedures: Reports: None HEENT Surgical History: Reports: Cataract Surgery Cardiovascular Surgical History: Reports: Coronary Artery Bypass, Valve Replacement Respiratory Surgical History: Reports: None GI Surgical History: Reports: None Female Surgical History: Reports: None Male Surgical History: Reports: None Endocrine Surgical History: Reports: None Neurological Surgical History: Reports: None Musculoskeletal Surgical History: Reports: Other (See Below) Other Musculoskeletal Surgeries/Procedures:: right rotator cuff repair and replacement, bunionectomy, left knee arthroscopy, left leg fracture with repair, left wrist surgery, right total knee Oncologic Surgical History: Reports: None Dermatological Surgical History: Reports: None - SUBSTANCE USE Tobacco Use Status *Q: Former Tobacco User Recreational Drug Use History: No - HOME MEDS Home Medications: Home Meds Arginine HCl [l-Arginine] 1,000 mg PO BID 11/16/19 [History] Cholecalciferol (Vitamin D3) [Vitamin D3] 1,000 unit PO DAILY 11/16/19 [History] Glucosamine/D3/Boswellia Marlen [Osteo Bi-Flex Caplet] 1 tab PO BID 11/16/19 [History] Lactobacillus Acidophilus [Probiotic] 1 cap PO DAILY 11/16/19 [History] Losartan [Cozaar] 50 mg PO DAILY 11/16/19 [History] Metoprolol Tartrate 50 mg PO BID 11/16/19 [History] Pantoprazole Sodium [Protonix] 40 mg PO DAILY 11/16/19 [History] Ubidecarenone [Coq-10] 100 mg PO DAILY 11/16/19 [History] atorvaSTATin [Lipitor] 40 mg PO DAILY 11/16/19 [History] polyethylene glycoL 3350 [MiraLAX] 17 gm PO DAILY 11/16/19 [History] Focus 1 tab PO BID 01/11/20 [History] Acetaminophen [Tylenol Arthritis] 1,300 mg PO BID PRN #0 02/18/20 [Rx] Acetaminophen/oxyCODONE [Percocet 325-5 MG] 1 - 2 each PO Q4H PRN #60 tab 02/18/20 [Rx] Aspirin [Ecotrin EC] 325 mg PO BID #84 tab.ec 02/18/20 [Rx] Cyclobenzaprine [Flexeril] 5 mg PO BID PRN #20 tab 02/18/20 [Rx] - CURRENT (IN HOUSE) MEDS Current Meds: Current Medications Acetaminophen (Tylenol) 975 mg PO ONETIME RADU Stop: 02/18/20 16:00 Last Admin: 02/18/20 10:03 Dose: 975 mg Documented by: Aspirin (Ecotrin) 325 mg PO BID [facility] Morphine Sulfate 8 mg/Epinephrine HCl 0.3 mg/Cefuroxime Sodium 750 mg/Ketorolac Tromethamine 30 mg/Sodium Chloride 7.9 ml 0 mg .XX ASDIRECTED ONE Stop: 02/18/20 12:01 Cyclobenzaprine HCl (Flexeril) 5 mg PO BID PRN PRN Reason: Spasms Docusate Sodium (Colace) 100 mg PO BID [facility] Lactated Ringer's (Ringers, Lactated) 1,000 mls @ 125 mls/hr IV ASDIRECTED RADU Stop: 02/18/20 23:00 Last Admin: 02/18/20 09:50 Dose: 125 mls/hr Documented by: Cefazolin Sodium/Dextrose 2 gm (/ Premix) 50 mls @ 100 mls/hr IV Q8H [facility] Stop: 02/18/20 23:29 Ketorolac Tromethamine (Toradol) 15 mg IVPUSH Q6H PRN PRN Reason: Pain Lidocaine/Sodium Bicarbonate (Buffered Lidocaine 1% In Ns 8.4%) 0.25 ml IDERM ONETIME PRN PRN Reason: Prior to IV Start Stop: 02/18/20 18:00 Last Admin: 02/18/20 09:56 Dose: 0.25 ml Documented by: Oxycodone HCl (Oxycontin) 10 mg PO ONETIME RADU Stop: 02/18/20 16:00 Last Admin: 02/18/20 10:03 Dose: 10 mg Documented by: Oxycodone/Acetaminophen (Percocet 325-5 Mg) 1 - 2 tab PO Q4H PRN PRN Reason: Pain Pregabalin (Lyrica) 50 mg PO ONETIME RADU Stop: 02/18/20 12:00 Last Admin: 02/18/20 10:03 Dose: 50 mg Documented by: Sodium Chloride (Saline Flush) 10 ml FLUSH ASDIRECTED PRN PRN Reason: Keep Vein Open Stop: 02/18/20 18:00 Discontinued Medications Acetaminophen (Tylenol) 975 mg PO ONETIME RADU Stop: 02/18/20 13:00 Morphine Sulfate 8 mg/Epinephrine HCl 0.3 mg/Cefuroxime Sodium 750 mg/Ketorolac Tromethamine 30 mg/Sodium Chloride 7.9 ml 0 mg .XX ASDIRECTED PRN PRN Reason: Pain Stop: 02/11/20 23:00 Epinephrine HCl (Adrenalin) Confirm Administered Dose 1 mg .ROUTE .STK-MED ONE Stop: 02/18/20 05:26 Lactated Ringer's (Ringers, Lactated) 1,000 mls @ 125 mls/hr IV ASDIRECTED RADU Stop: 01/14/20 23:00 Lidocaine/Sodium Bicarbonate (Buffered Lidocaine 1% In Ns 8.4%) 0.25 ml IDERM ONETIME PRN PRN Reason: Prior to IV Start Stop: 01/14/20 18:00 Oxycodone HCl (Oxycontin) 10 mg PO ONETIME RADU Stop: 02/18/20 13:00 Ropivacaine (Naropin 0.5%) Confirm Administered Dose 30 ml .ROUTE .STK-MED ONE Stop: 02/18/20 05:26 Sodium Chloride (Saline Flush) 10 ml FLUSH ASDIRECTED PRN PRN Reason: Keep Vein Open Stop: 01/14/20 18:00
[2020-02-18] MEDS ORDERED: Lidocaine 1% 4 ML ONE (11:09)
[2020-02-18] MEDS ORDERED: Propofol 200 MG/20 ML SDV ONE ×2 (11:09→13:00)
[2020-02-18] MEDS ORDERED: Midazolam 1 MG/ML 2 ML SDV ONE (11:11)
[2020-02-18] MEDS ORDERED: fentaNYL 100 MCG/2 ML SDV ONE (11:12)
[2020-02-18] MEDS ORDERED: ceFAZolin 1 GM Vial ONE (11:12)
[2020-02-18] MEDS ORDERED: Bupivacaine 0.25% 10 ML SDV ONE (11:33)
[2020-02-18] MEDS ORDERED: Vancomycin 1 GM SDV ONE (11:33)
[2020-02-18] MEDS ORDERED: Lidocaine 1% 2 ML ONE (11:55)
[2020-02-18] MEDS ORDERED: ePHEDrine Sulfate/0.9% NaCl/Pf 25 MG/5 ML SYRINGE IV ONE (12:09)
[2020-02-18] MEDS ORDERED: fentaNYL 100 MCG/2 ML SDV IVPUSH PRN (12:29)
[2020-02-18] MEDS ORDERED: Ondansetron 4 MG/2 ML SDV IVPUSH PRN ×2 (12:29→14:04)
[2020-02-18] MEDS: Morphine 8 MG, EPINEPHrine 0.3 MG, Cefuroxime 750 MG, Ketorolac 30 MG, Sodium Chloride ... ONE ×10 (13:29→15:47)
[2020-02-18] MEDS ORDERED: Ondansetron 4 MG/2 ML SDV ONE (13:31)
[2020-02-18] MEDS ORDERED: Ketorolac 15 MG/ML SDV ONE (13:31)
[2020-02-18] MEDS ORDERED: Sennosides 8.6 MG Tab PO PRN (14:04)
[2020-02-18] MEDS ORDERED: Naloxone 0.4 MG/ML SDV IVPUSH PRN (14:04)
[2020-02-18] MEDS ORDERED: Magnesium Hydroxide 400 MG/5 ML Susp 30 ML Cup PO PRN (14:04)
[2020-02-18] MEDS ORDERED: Bisacodyl 5 MG Tab PO PRN (14:04)
[2020-02-18] MEDS ORDERED: Morphine 2 MG/ML SYRINGE IVPUSH PRN (14:04)
--- NOTE | 2020-02-18 14:09 | PCM.POSTAN ---
POST ANESTHESIA ASSESSMENT - MENTAL STATUS Mental Status: Alert, Oriented - VITAL SIGNS Vital Signs: Last Vital Signs Temp 36.6 C 02/18/20 09:35 Pulse 76 02/18/20 09:35 Resp 16 02/18/20 09:35 BP 137/62 02/18/20 09:35 Pulse Ox 98 02/18/20 09:35 - RESPIRATORY Respiratory Status: Respiratory Rate WNL, Airway Patent, O2 Saturation Stable - CARDIOVASCULAR CV Status: Pulse Rate WNL, Blood Pressure Stable - GASTROINTESTINAL GI Status: No Symptoms - POST OP HYDRATION Hydration Status: Adequate & Stable
--- NOTE | 2020-02-18 14:37 | PCM.SN.2 ---
- Free Text/Narrative Note: Left selective femoral nerve block at the adductor canal for post-procedure pain control under US guidance requested by Dr. Branch. Date: 02/18/2020 Time Out: 1415 Start: 1415 End: 1420 Chart reviewed. Consent signed. Questions answered. Appropriate monitors applied. Time out performed. Left mid-shaft femur identified with ultrasound, scanning medially of femur, the femoral artery in the adductor canal visualized, and the femoral nerve located laterally to the artery. The skin was prepped lateral to the ultrasound probe with chlorahexadine times two. The 21ga 4 insulated block needle was inserted under direct ultrasound guidance into the adductor canal. 25mL of 0.5% ropivacaine with 1:200,000 epinephrine was injected circumferentially around the nerve with intermittent negative aspiration noted. Patient tolerated the procedure well. Sterile technique noted along with sterile gloves, mask, and sterile probe cover. See picture on progress note and vital signs on nurses notes. Block completed in PACU. Erinn Buckner CRNA
--- NOTE | 2020-02-18 14:45 | PCM48HPAN ---
Post Anesthesia Note - EVALUATION WITHIN 48HRS OF ANESTHETIC Vital Signs in Normal Range: Yes Patient Participated in Evaluation: Yes Respiratory Function Stable: Yes Airway Patent: Yes Cardiovascular Function Stable: Yes Hydration Status Stable: Yes Pain Control Satisfactory: Yes Nausea and Vomiting Control Satisfactory: Yes Mental Status Recovered: Yes Vital Signs: Last Vital Signs Temp 36.6 C 02/18/20 09:35 Pulse 76 02/18/20 09:35 Resp 16 02/18/20 09:35 BP 137/62 02/18/20 09:35 Pulse Ox 98 02/18/20 09:35
[2020-02-18] MEDS: Acetaminophen/oxyCODONE 325-5 MG Tab PO PRN ×2 (16:35→21:57)
[2020-02-18] MEDS: Famotidine 20 MG Tab PO SCH (16:46)
--- NOTE | 2020-02-18 17:28 | PCM.CONS ---
H&P History of Present Illness - General Date of Service: 02/18/20 Admit Problem/Dx: Admission Diagnosis/Problem Admission Diagnosis/Problem Osteoarthritis of knee Source of Information: Patient History Limitations: Reports: No Limitations - History of Present Illness Initial Comments - Free Text/Narative: The patient is a 79-year-old lady who is postop day 0 for total left knee replacement. Internal medicine was consulted to help manage her multiple medical issues. The patient has predominantly a history of heart disease which has included aortic valve replacement and pacemaker. The patient also has a history of hypothyroidism, hypertension, prediabetes and hyperlipidemia. The patient says that she has not been on any medication for anticoagulation except for aspirin. She has done well with this. The patient had her right knee replaced earlier without difficulty. The patient's medical records have been reviewed. Onset of Symptoms: Reports: Gradual Duration of Symptoms: Reports: Week(s): Location: Reports: Lower Extremity, Left Improves with: Reports: Cold Therapy Worsens with: Reports: Movement Context: Reports: Other (Postop day 0 left total knee arthroplasty) Left Knee Pain Score (Numeric/FACES): 0 - Related Data Allergies/Adverse Reactions: Allergies Allergy/AdvReac Type Severity Reaction Status Date / Time adhesive Allergy Blisters Verified 02/15/20 16:34 Sulfa (Sulfonamide Allergy Rash Verified 02/15/20 16:34 Antibiotics) Home Medications: Home Meds Arginine HCl [l-Arginine] 1,000 mg PO BID 11/16/19 [History] Cholecalciferol (Vitamin D3) [Vitamin D3] 1,000 unit PO DAILY 11/16/19 [History] Glucosamine/D3/Boswellia Marlen [Osteo Bi-Flex Caplet] 1 tab PO BID 11/16/19 [His tory] Lactobacillus Acidophilus [Probiotic] 1 cap PO DAILY 11/16/19 [History] Losartan [Cozaar] 50 mg PO DAILY 11/16/19 [History] Metoprolol Tartrate 50 mg PO BID 11/16/19 [History] Pantoprazole Sodium [Protonix] 40 mg PO DAILY 11/16/19 [History] Ubidecarenone [Coq-10] 100 mg PO DAILY 11/16/19 [History] atorvaSTATin [Lipitor] 40 mg PO DAILY 11/16/19 [History] polyethylene glycoL 3350 [MiraLAX] 17 gm PO DAILY 11/16/19 [History] Focus 1 tab PO BID 01/11/20 [History] Acetaminophen [Tylenol Arthritis] 1,300 mg PO BID PRN #0 02/18/20 [Rx] Acetaminophen/oxyCODONE [Percocet 325-5 MG] 1 - 2 each PO Q4H PRN #60 tab 02/18/20 [Rx] Aspirin [Ecotrin EC] 325 mg PO BID #84 tab.ec 02/18/20 [Rx] Cyclobenzaprine [Flexeril] 5 mg PO BID PRN #20 tab 02/18/20 [Rx] Past Medical History HEENT History: Reports: Cataract, Impaired Vision, Macular Degeneration Cardiovascular History: Reports: CAD, Stents, Other (See Below) Other Cardiovascular History: left carotid bruit, pacemaker, aortic sclerosis, AV block, Left BBB, aortic valve replacement Respiratory History: Reports: None Gastrointestinal History: Reports: Colon Polyp, Other (See Below) Other Gastrointestinal History: heme + positive, esophagitis, umbilical hernia repair Genitourinary History: Reports: None PRINCIPAL NETWORK ENGINEER History: Reports: None, Other (See Below) Other OB/BYN History: vaginal dryness, right breast biopsy Musculoskeletal History: Reports: Osteoarthritis, Osteoporosis, Other (See Below) Other Musculoskeletal History: right toe pain, osteoporosis, left leg fracture Neurological History: Reports: None Psychiatric History: Reports: None Endocrine/Metabolic History: Reports: Hypothyroidism, Obesity/BMI 30+ Hematologic History: Reports: None Immunologic History: Reports: None Oncologic (Cancer) History: Reports: None Dermatologic History: Reports: Other (See Below) Other Dermatologic History: paronychia, onchomycosis, corn/callous - Infectious Disease History Infectious Disease History: Reports: None - Past Surgical History Head Surgeries/Procedures: Reports: None HEENT Surgical History: Reports: Cataract Surgery Cardiovascular Surgical History: Reports: Coronary Artery Bypass, Valve Replacement Respiratory Surgical History: Reports: None GI Surgical History: Reports: None Female Surgical History: Reports: None Male Surgical History: Reports: None Endocrine Surgical History: Reports: None Neurological Surgical History: Reports: None Musculoskeletal Surgical History: Reports: Other (See Below) Other Musculoskeletal Surgeries/Procedures:: right rotator cuff repair and replacement, bunionectomy, left knee arthroscopy, left leg fracture with repair, left wrist surgery, right total knee Oncologic Surgical History: Reports: None Dermatological Surgical History: Reports: None Social & Family History - Family History Family Medical History: Noncontributory - Tobacco Use Tobacco Use Status *Q: Former Tobacco User Used Tobacco, but Quit: Yes Month/Year Tobacco Last Used: 05/2019 Second Hand Smoke Exposure: No - Caffeine Use Caffeine Use: Reports: Coffee - Recreational Drug Use Recreational Drug Use: No H&P Review of Systems - Review of Systems: Review Of Systems: See Below General: Reports: No Symptoms HEENT: Reports: No Symptoms Pulmonary: Reports: No Symptoms Cardiovascular: Reports: No Symptoms Gastrointestinal: Reports: No Symptoms Genitourinary: Reports: No Symptoms Musculoskeletal: Reports: Leg Pain, Joint Pain Skin: Reports: No Symptoms Psychiatric: Reports: No Symptoms Neurological: Reports: No Symptoms Hematologic/Lymphatic: Reports: No Symptoms Immunologic: Reports: No Symptoms Exam - Exam Exam: See Below - Vital Signs Vital Signs: Last Vital Signs Temp 35.9 C L 02/18/20 15:28 Pulse 79 02/18/20 15:28 Resp 20 02/18/20 15:28 BP 129/78 02/18/20 15:28 Pulse Ox 95 02/18/20 15:28 Weight: 72.575 kg - Exam Quality Assessment: No: Supplemental Oxygen General: Alert, Oriented, Cooperative HEENT: Conjunctiva Clear, EACs Clear, EOMI, Mucosa Moist & [place]: Supple, Trachea Midline Lungs: Clear to Auscultation, Normal Respiratory Effort Cardiovascular: Regular Rate, Regular Rhythm, Systolic Murmur. No: Normal S2 (S2 click) GI/Abdominal Exam: Normal Bowel Sounds, Soft, Non-Tender, No Distention (Female) Exam: Deferred Rectal (Female) Exam: Deferred Back Exam: Normal Inspection, Full Range of Motion Extremities: Normal Inspection. No: Normal Range of Motion (Postop day 0 left total knee arthroplasty) Skin: Warm, Dry, Intact Neurological: Cranial Nerves Intact Neuro Extensive - Mental Status: Alert, Oriented x3 Neuro Extensive - Motor, Sensory, Reflexes: CN II-XII Intact Psychiatric: Alert, Normal Affect Sepsis Event Note - Evaluation Sepsis Screening Result: No Definite Risk - Focused Exam Vital Signs: Vital Signs Temp Temp Pulse Pulse Resp BP BP 02/18/20 15:28 35.9 C L 79 20 129/78 02/18/20 15:05 36.9 C 82 14 110/42 L 10/19/20 14:55 02/18/20 14:51 02/18/20 14:50 77 14 120/53 L 02/18/20 14:35 36.8 C 77 14 120/53 L 02/18/20 14:18 36.9 C 74 15 121/80 02/18/20 14:03 37.2 C 82 18 105/50 L 02/18/20 09:35 36.6 C 76 16 137/62 Pulse Ox Pulse Ox 02/18/20 15:28 95 02/18/20 15:05 95 02/18/20 14:55 97 02/18/20 14:51 100 02/18/20 14:50 97 02/18/20 14:35 97 02/18/20 14:18 98 02/18/20 14:03 95 95 02/18/20 09:35 98 Consult PN Assessment/Plan POD#: 0 Procedures: Procedures COMPLETE CBC AUTOMATED (11/19/19) COMPREHEN METABOLIC PANEL (11/19/19) GAIT TRAINING THERAPY (11/19/19) MEASURE BLOOD OXYGEN LEVEL (11/19/19) MEASURE BLOOD OXYGEN LEVEL (11/19/19) MR-STAPH DNA AMP PROBE (11/19/19) OFFICE/OUTPATIENT VISIT EST (11/19/19) OT EVAL LOW COMPLEX 30 MIN (11/19/19) PT EVAL LOW COMPLEX 20 MIN (11/19/19) ROUTINE VENIPUNCTURE (11/19/19) SELF CARE MNGMENT TRAINING (11/19/19) THERAPEUTIC EXERCISES (11/19/19) X-RAY EXAM OF KNEE 1 OR 2 (11/19/19) Left total knee arthroplasty (1) CAD (coronary artery disease) SNOMED Code(s): 98418161 Code(s): I25.10 - ATHSCL HEART DISEASE OF [place] CORONARY ARTERY W/O ANG PCTRS Priority: Medium Current Visit: Yes Qualifiers: Coronary Disease-Associated Artery/Lesion type: unspecified vessel or lesion type [place] vs. transplanted heart: [place] heart Associated angina: angina presence unspecified Qualified Code(s): I25.10 - Atherosclerotic heart disease of [place] coronary artery without angina pectoris (2) HTN (hypertension) SNOMED Code(s): 22653576 Code(s): I10 - ESSENTIAL (PRIMARY) HYPERTENSION Priority: Medium Current Visit: Yes Qualifiers: Hypertension type: essential hypertension Qualified Code(s): I10 - Essential (primary) hypertension (3) History of aortic valve replacement with bioprosthetic valve SNOMED Code(s): 1357053881821 Code(s): Z95.3 - PRESENCE OF XENOGENIC HEART VALVE Priority: Medium Current Visit: Yes Onset Date: ~01/15/19 (4) Pacemaker SNOMED Code(s): 670403711 Code(s): Z95.0 - PRESENCE OF CARDIAC PACEMAKER Priority: Medium Current Visit: Yes Problem List Initiated/Reviewed/Updated: Yes Plan: I would like to thank Dr. Branch for participation in care with his patient. The patient does have a history of coronary artery disease and she does have a bioprosthetic valve. The patient has used aspirin as an anticoagulant successfully and this should be continued. The patient also has a history of coronary artery disease and I would recommend that we continue with telemetry. The patient's vital signs will be monitored and her antihypertensives have been restarted. The patient should have, when able, appropriate diabetic diet due to her prediabetes. Recommend a hemoglobin A1c. Internal medicine will follow with laboratory studies that have been ordered. Requesting Provider: Dr. Branch Date Consult Requested: 02/18/20 Patient History Reviewed: Yes Admission H&P Reviewed: Yes Notified Requestor: Yes
[2020-02-18] MEDS: Cyclobenzaprine 10 MG Tab PO PRN (19:24)
[2020-02-18] MEDS: ceFAZolin 2 GM in Premix Bag 1 BAG IV SCH (20:41)
[2020-02-18] MEDS: Metoprolol Tartrate 50 MG Tab PO SCH (21:02)
[2020-02-18] MEDS: Docusate Sodium 100 MG Cap PO SCH (21:02)
[2020-02-18] MEDS: Ketorolac 15 MG/ML SDV IVPUSH PRN (21:04)
[2020-02-19] MEDS: ceFAZolin 2 GM in Premix Bag 1 BAG IV SCH ×2 (04:17→11:34)
[2020-02-19] MEDS: Famotidine 20 MG Tab PO SCH (04:18)
[2020-02-19] MEDS: Acetaminophen/oxyCODONE 325-5 MG Tab PO PRN ×2 (04:22→10:52)
[2020-02-19] MEDS: Ketorolac 15 MG/ML SDV IVPUSH PRN (07:45)
[2020-02-19] MEDS: Cyclobenzaprine 10 MG Tab PO PRN (07:47)
[2020-02-19] MEDS: Sodium Chloride 0.9% 10 ML Syringe FLUSH PRN ×2 (07:50→11:35)
--- NOTE | 2020-02-19 08:28 | PCM.SURGPN ---
- General Info Date of Service: 02/19/20 POD#: 1 Functional Status: Reports: Pain Controlled, Tolerating Diet, Ambulating, Urinating, Incentive Spirometry, Other (The pt states she has been ambulating in her room.) - Patient Data Vitals - Most Recent: Last Vital Signs Temp 98.4 F 02/19/20 07:21 Pulse 87 02/19/20 07:21 Resp 15 02/19/20 07:21 BP 135/55 L 02/19/20 07:21 Pulse Ox 92 L 02/19/20 07:21 Weight - Most Recent: 160 lb I&O - Last 24 Hours: Intake & Output 02/18/20 02/19/20 02/19/20 22:59 06:59 14:59 Intake Total 450 400 Output Total 300 Balance 150 400 Lab Results Last 24 Hrs: Laboratory Results - last 24 hr 02/19/20 Range/Units 06:02 WBC 6.47 (3.98-10.04) K/mm3 RBC 3.76 L (3.98-5.22) M/mm3 Hgb 10.6 L (11.2-15.7) gm/dl Hct 34.7 (34.1-44.9) % MCV 92.3 (79.4-94.8) fl MCH 28.2 (25.6-32.2) pg MCHC 30.5 L (32.2-35.5) g/dl RDW Std Deviation 47.0 H (36.4-46.3) fL Plt Count 154 L (182-369) K/mm3 MPV 10.1 (9.4-12.3) fl Med Orders - Current: Current Medications Aspirin (Ecotrin) 325 mg PO BID [facility] Bisacodyl (Dulcolax) 5 mg PO DAILY PRN PRN Reason: Constipation Cholecalciferol (Vitamin D3) 1,000 mcg PO DAILY [facility] Cyclobenzaprine HCl (Flexeril) 5 mg PO BID PRN PRN Reason: Spasms Last Admin: 02/19/20 07:47 Dose: 5 mg Documented by: Docusate Sodium (Colace) 100 mg PO BID [facility] Last Admin: 02/18/20 21:02 Dose: 100 mg Documented by: Famotidine (Pepcid) 20 mg PO Q12H [facility] Last Admin: 02/19/20 04:18 Dose: 20 mg Documented by: Cefazolin Sodium/Dextrose 2 gm (/ Premix) 50 mls @ 100 mls/hr IV Q8H [facility] Stop: 02/19/20 12:29 Last Admin: 02/19/20 04:17 Dose: 100 mls/hr Documented by: Losartan Potassium (Cozaar) 50 mg PO DAILY [facility] Magnesium Hydroxide (Milk Of Magnesia) 30 ml PO BID PRN PRN Reason: Constipation Metoprolol Tartrate (Lopressor) 50 mg PO BID [facility] Last Admin: 02/18/20 21:02 Dose: 50 mg Documented by: Morphine Sulfate (Morphine) 2 mg IVPUSH Q2H PRN PRN Reason: Breakthrough Pain Naloxone HCl (Narcan) 0.1 mg IVPUSH Q5M PRN PRN Reason: Oversedation Ondansetron HCl (Zofran) 4 mg IVPUSH Q6H PRN PRN Reason: Nausea/Vomiting Oxycodone/Acetaminophen (Percocet 325-5 Mg) 1 - 2 tab PO Q4H PRN PRN Reason: Pain Last Admin: 02/19/20 04:22 Dose: 1 tab Documented by: Pantoprazole Sodium (Protonix) 40 mg PO DAILY [facility] Polyethylene Glycol (Miralax) 17 gm PO DAILY [facility] Senna (Senna) 8.6 mg PO BID PRN PRN Reason: Constipation Simvastatin (Zocor) 10 mg PO DAILY [facility] Discontinued Medications Acetaminophen (Tylenol) 975 mg PO ONETIME [facility] Stop: 02/18/20 13:00 Acetaminophen (Tylenol) 975 mg PO ONETIME [facility] Stop: 02/18/20 16:00 Last Admin: 02/18/20 10:03 Dose: 975 mg Documented by: Bupivacaine HCl (Sensorcaine-Mpf 0.25%) Confirm Administered Dose 30 ml .ROUTE .STK-MED ONE Stop: 02/18/20 11:34 Last Admin: 02/18/20 13:28 Dose: 30 ml Documented by: Cefazolin Sodium (Ancef) Confirm Administered Dose 2 gm .ROUTE .STK-MED ONE Stop: 02/18/20 11:13 Morphine Sulfate 8 mg/Epinephrine HCl 0.3 mg/Cefuroxime Sodium 750 mg/Ketorolac Tromethamine 30 mg/Sodium Chloride 7.9 ml 0 mg .XX ASDIRECTED PRN PRN Reason: Pain Stop: 02/11/20 23:00 Morphine Sulfate 8 mg/Epinephrine HCl 0.3 mg/Cefuroxime Sodium 750 mg/Ketorolac Tromethamine 30 mg/Sodium Chloride 7.9 ml 0 mg .XX ASDIRECTED ONE Stop: 02/18/20 12:01 Last Admin: 02/18/20 15:47 Dose: Not Given Documented by: Ephedrine Sulfate (Ephedrine 25 Mg/5 Ml Syringe) Confirm Administered Dose 0 mg IV .STK-MED ONE Stop: 02/18/20 12:10 Epinephrine HCl (Adrenalin) Confirm Administered Dose 1 mg .ROUTE .STK-MED ONE Stop: 02/18/20 05:26 Fentanyl (Sublimaze) Confirm Administered Dose 100 mcg .ROUTE .STK-MED ONE Stop: 02/18/20 11:13 Fentanyl (Sublimaze) 50 mcg IVPUSH Q5M PRN PRN Reason: Pain Stop: 02/18/20 16:00 Lactated Ringer's (Ringers, Lactated) 1,000 mls @ 125 mls/hr IV ASDIRECTED [facility] Stop: 01/14/20 23:00 Lactated Ringer's (Ringers, Lactated) 1,000 mls @ 125 mls/hr IV ASDIRECTED [facility] Stop: 02/18/20 23:00 Last Admin: 02/18/20 09:50 Dose: 125 mls/hr Documented by: Lidocaine HCl (Xylocaine-Mpf 1%) Confirm Administered Dose 4 mls @ as directed .ROUTE .STK-MED ONE Stop: 02/18/20 11:10 Lidocaine HCl (Xylocaine-Mpf 1%) Confirm Administered Dose 2 mls @ as directed .ROUTE .STK-MED ONE Stop: 02/18/20 11:56 Ketorolac Tromethamine (Toradol) 15 mg IVPUSH Q6H PRN PRN Reason: Pain Last Admin: 02/19/20 07:45 Dose: 15 mg Documented by: Ketorolac Tromethamine (Toradol) Confirm Administered Dose 15 mg .ROUTE .STK-MED ONE Stop: 02/18/20 13:32 Lidocaine/Sodium Bicarbonate (Buffered Lidocaine 1% In Ns 8.4%) 0.25 ml IDERM ONETIME PRN PRN Reason: Prior to IV Start Stop: 01/14/20 18:00 Lidocaine/Sodium Bicarbonate (Buffered Lidocaine 1% In Ns 8.4%) 0.25 ml IDERM ONETIME PRN PRN Reason: Prior to IV Start Stop: 02/18/20 18:00 Last Admin: 02/18/20 09:56 Dose: 0.25 ml Documented by: Midazolam HCl (Versed 1 Mg/Ml) Confirm Administered Dose 2 mg .ROUTE .STK-MED ONE Stop: 02/18/20 11:12 Miscellaneous Medication (Phenylephrine 1 Mg/10 Ml-Ns) Confirm Administered Dose 1 mg .ROUTE .STK-MED ONE Stop: 02/18/20 12:11 Non-Formulary Medication (Ubidecarenone) 100 mg PO DAILY [facility] Ondansetron HCl (Zofran) 4 mg IVPUSH ONETIME PRN PRN Reason: Nausea/Vomiting Stop: 02/18/20 16:00 Ondansetron HCl (Zofran) Confirm Administered Dose 4 mg .ROUTE .STK-MED ONE Stop: 02/18/20 13:32 Oxycodone HCl (Oxycontin) 10 mg PO ONETIME [facility] Stop: 02/18/20 13:00 Oxycodone HCl (Oxycontin) 10 mg PO ONETIME [facility] Stop: 02/18/20 16:00 Last Admin: 02/18/20 10:03 Dose: 10 mg Documented by: Pregabalin (Lyrica) 50 mg PO ONETIME [facility] Stop: 02/18/20 12:00 Last Admin: 02/18/20 10:03 Dose: 50 mg Documented by: Propofol (Diprivan 20 Ml) Confirm Administered Dose 200 mg .ROUTE .STK-MED ONE Stop: 02/18/20 11:10 Propofol (Diprivan 20 Ml) Confirm Administered Dose 200 mg .ROUTE .STK-MED ONE Stop: 02/18/20 13:01 Ropivacaine (Naropin 0.5%) Confirm Administered Dose 30 ml .ROUTE .STK-MED ONE Stop: 02/18/20 05:26 Sodium Chloride (Saline Flush) 10 ml FLUSH ASDIRECTED PRN PRN Reason: Keep Vein Open Stop: 01/14/20 18:00 Sodium Chloride (Saline Flush) 10 ml FLUSH ASDIRECTED PRN PRN Reason: Keep Vein Open Stop: 02/18/20 18:00 Last Admin: 02/19/20 07:50 Dose: 10 ml Documented by: Tranexamic Acid (Cyklokapron) Confirm Administered Dose 1,000 mg .ROUTE .STK-MED ONE Stop: 02/18/20 11:33 Last Admin: 02/18/20 13:40 Dose: 1,000 mg Documented by: Tranexamic Acid (Cyklokapron) Confirm Administered Dose 1,000 mg .ROUTE .STK-MED ONE Stop: 02/18/20 11:38 Vancomycin HCl (Vancomycin) Confirm Administered Dose 1 gm .ROUTE .STK-MED ONE Stop: 02/18/20 11:34 Last Admin: 02/18/20 13:40 Dose: 1 gm Documented by: - Exam Wound/Incisions: Dressing Dry and Intact General: Alert, Cooperative, No Acute Distress Lungs: Normal Respiratory Effort Extremities: Other (NVS intact for BLE. Diego's negative.) Sepsis Event Note - Evaluation Sepsis Screening Result: No Definite Risk - Focused Exam Vital Signs: Vital Signs Temp Pulse Resp BP Pulse Ox 02/19/20 07:21 98.4 F 87 15 135/55 L 92 L 02/19/20 04:26 99.0 F 77 16 136/51 L 95 02/18/20 21:02 77 143/59 H - Problem List Review Problem List Initiated/Reviewed/Updated: Yes - My Orders Last 24 Hours: Active Orders 24 hr Category Date Time Status Patient Status [ADT] Routine ADT 02/18/20 14:04 Active Ambulate [RC] PER UNIT ROUTINE Care 02/18/20 14:04 Active Communication Order [RC] ASDIRECTED Care 02/18/20 12:28 Active May Shower [RC] ASDIRECTED Care 02/18/20 14:04 Active Notify Provider [RC] ASDIRECTED Care 02/18/20 12:29 Active Oxygen Therapy [RC] ASDIRECTED Care 02/18/20 12:29 Active Ready for Discharge [RC] PER UNIT ROUTINE Care 02/19/20 08:25 Ordered Up to Chair [RC] ASDIRECTED Care 02/18/20 14:04 Active Vital Signs [RC] Q4HR Care 02/18/20 12:29 Active Regular Diet [DIET] Diet 02/18/20 Lunch Active Aspirin [Ecotrin] Med 02/19/20 09:00 Active 325 mg PO BID Cholecalciferol (Vitamin D3) [Vitamin D3] Med 02/19/20 09:00 Active 1,000 mcg PO DAILY Docusate Sodium [Colace] Med 02/18/20 21:00 Active 100 mg PO BID Famotidine [Pepcid] Med 02/18/20 14:15 Active 20 mg PO Q12H Losartan [Cozaar] Med 02/19/20 09:00 Active 50 mg PO DAILY Magnesium Hydroxide [Milk of Magnesia] Med 02/18/20 14:04 Active 30 ml PO BID PRN Metoprolol Tartrate [Lopressor] Med 02/18/20 21:00 Active 50 mg PO BID Morphine Med 02/18/20 14:04 Active 2 mg IVPUSH Q2H PRN Naloxone [Narcan] Med 02/18/20 14:04 Active 0.1 mg IVPUSH Q5M PRN Ondansetron [Zofran] Med 02/18/20 14:04 Active 4 mg IVPUSH Q6H PRN Pantoprazole [ProTONIX] Med 02/19/20 09:00 Active 40 mg PO DAILY Sennosides [Senna] Med 02/18/20 14:04 Active 8.6 mg PO BID PRN Simvastatin [Zocor] Med 02/19/20 09:00 Active 10 mg PO DAILY bisacodyL [Dulcolax] Med 02/18/20 14:04 Active 5 mg PO DAILY PRN ceFAZolin [Ancef] 2 gm Med 02/18/20 20:00 Active Premix Bag 1 bag IV Q8H polyethylene glycoL 3350 [MiraLAX] Med 02/19/20 09:00 Active 17 gm PO DAILY Ice Therapy [OM.PC] Per Unit Routine Oth 02/18/20 14:05 Ordered Resuscitation Status Routine Resus Stat 02/18/20 14:04 Ordered Medication Orders Aspirin (Ecotrin) 325 mg PO BID [facility] Bisacodyl (Dulcolax) 5 mg PO DAILY PRN PRN Reason: Constipation Cholecalciferol (Vitamin D3) 1,000 mcg PO DAILY [facility] Cyclobenzaprine HCl (Flexeril) 5 mg PO BID PRN PRN Reason: Spasms Last Admin: 02/19/20 07:47 Dose: 5 mg Documented by: Admin: 10/19/20 19:24 Dose: 5 mg Documented by: WALTER Docusate Sodium (Colace) 100 mg PO BID [facility] Last Admin: 02/18/20 21:02 Dose: 100 mg Documented by: WALTER Famotidine (Pepcid) 20 mg PO Q12H [facility] Last Admin: 02/19/20 04:18 Dose: 20 mg Documented by: Admin: 02/18/20 16:46 Dose: Not Given Documented by: SIGRID Cefazolin Sodium/Dextrose 2 gm (/ Premix) 50 mls @ 100 mls/hr IV Q8H [facility] Stop: 02/19/20 12:29 Last Admin: 02/19/20 04:17 Dose: 100 mls/hr Documented by: Infusion: 02/18/20 21:11 Dose: 100 mls/hr Documented by: Admin: 02/18/20 20:41 Dose: 100 mls/hr Documented by: BLAKE Losartan Potassium (Cozaar) 50 mg PO DAILY [facility] Magnesium Hydroxide (Milk Of Magnesia) 30 ml PO BID PRN PRN Reason: Constipation Metoprolol Tartrate (Lopressor) 50 mg PO BID [facility] Last Admin: 02/18/20 21:02 Dose: 50 mg Documented by: WALTER Morphine Sulfate (Morphine) 2 mg IVPUSH Q2H PRN PRN Reason: Breakthrough Pain Naloxone HCl (Narcan) 0.1 mg IVPUSH Q5M PRN PRN Reason: Oversedation Ondansetron HCl (Zofran) 4 mg IVPUSH Q6H PRN PRN Reason: Nausea/Vomiting Oxycodone/Acetaminophen (Percocet 325-5 Mg) 1 - 2 tab PO Q4H PRN PRN Reason: Pain Last Admin: 02/19/20 04:22 Dose: 1 tab Documented by: Admin: 02/18/20 21:57 Dose: 2 tab Documented by: Admin: 02/18/20 16:35 Dose: 2 tab Documented by: [id number] Pantoprazole Sodium (Protonix) 40 mg PO DAILY [facility] Polyethylene Glycol (Miralax) 17 gm PO DAILY [facility] Senna (Senna) 8.6 mg PO BID PRN PRN Reason: Constipation Simvastatin (Zocor) 10 mg PO DAILY [facility] - Assessment Assessment (Free Text/Narrative):: POD#1 - s/p left TKA with hardware removal - Plan Plan (Free Text/Narrative):: 1. Hgb 10.6. 2. ASA PO BID, frequent mobility, TEDs. 3. Discharge to home today. The pt will have the assistance of her friend at home. 4. Further orders per Hospitalist service. The pt's case was discussed with Dr. Branch. Case discussed with Hospitalist service also.
[2020-02-19] MEDS ORDERED: Aspirin 325 MG Tab.EC PO SCH (09:00)
[2020-02-19] MEDS ORDERED: Polyethylene Glycol 3350 Powder 17 GM Packet PO SCH (09:00)
[2020-02-19] MEDS ORDERED: Non-Formulary Medication 1 Each (Ubidecarenone 100 MG) PO SCH (09:00)
[2020-02-19] MEDS ORDERED: Losartan 25 MG Tab PO SCH (09:00)
[2020-02-19] MEDS ORDERED: Pantoprazole 40 MG Tab.CR PO SCH (09:00)
[2020-02-19] MEDS ORDERED: Cholecalciferol (Vitamin D3) 25 MCG Tab PO SCH (09:00)
[2020-02-19] MEDS ORDERED: Simvastatin 10 MG Tab PO SCH (09:00)
[2020-02-19] MEDS: Docusate Sodium 100 MG Cap PO SCH (09:06)
[2020-02-19] MEDS: Metoprolol Tartrate 50 MG Tab PO SCH (09:12)
--- NOTE | 2020-02-19 10:17 | PCM.DCSUM1 ---
Discharge Summary - Hospital Course Brief History: Leti is a 79 yo female who underwent hardware removal with left TKA with Dr. Branch on 02-18-2020. The procedure was completed under spinal anesthesia and a post-operative adductor canal block was provided. The pt tolerated the procedure well and was admitted to the Reimbursement Representative Unit under Medical- Surgical status. Medical management was provided by the Hospitalist service. The pt's Hospital course was uneventful and her pain was under control. The pt's Hgb on POD#1 was 10.6. On POD#1, 325mg ASA BID was initiated for VTE prophylaxis. SCDs and TEDs were also ordered. A JOSH dressing was placed at the incision site at the time of surgery and remained clean and dry. The pt participated in P.T. and O.T. and progressed well. The pt was allowed to WBAT and used a FWW for mobility. On POD#1, the pt was deemed appropriate to discharge to home with her friend. - Discharge Data Discharge Date: 02/19/20 Discharge Disposition: Home, Self-Care 01 Condition: Good - Referral to Home Health Primary Care Physician: Faisal Montana MD - Patient Summary/Data Consults: Consultations 02/18/20 06:51 OT Evaluation and Treatment [CONS] Routine PT Evaluation and Treatment [CONS] Routine 02/18/20 07:25 Consult to Physician [CONS] Routine - Patient Instructions Diet: Usual Diet as Tolerated Activity: Apply Ice, As Tolerated, Elevate Extremity, Full Weight Bearing Driving: Do Not Drive Showering/Bathing: May Shower Wound/Incision Care: Keep Operative Site/Wound Site Clean and Dry, Do NOT Change Dressing Notify Provider of: Fever, Increased Pain, Swelling and Redness, Drainage, Nausea and/or Vomiting Other/Special Instructions: Please get up and moving around EVERY HOUR while awake. This helps to prevent blood clots. Please use your walker and have help with mobility as needed. Take a short walk in your home every hour while awake. Starting the day after surgery (02-19-2020), please start taking 325mg aspirin TWICE daily. The aspirin is being used for blood clot prevention and not for pain management so please do not miss a dose of the medication. You could use a medication like Pepcid or Tagamet and a medication like Prilosec or Nexium to protect your stomach while you are using the aspirin. At home, please complete the exercises that you learned with physical therapy. Schedule for outpatient physical therapy. Use the pain medication as needed. The medication may cause drowsiness and constipation. Contact your primary care provider for instructions if you are constipated. You may use a stool softener like docusate sodium or Colace 100mg twice daily and/or a laxative like Miralax daily for constipation. Increase your water and fiber intake while you are using the pain medication. Please discontinue use of the prescription pain medication as soon as able. The goal is to use the least amount of prescription pain medication as possible and to discontinue use of the prescription pain medication as soon as possible. Please do not use other medications that may cause drowsiness (other pain medications, anxiety pills, cold medications, sleeping pills, etc) while using the prescription pain medication. Do not use alcohol while using the pain medication. You may use acetaminophen or Tylenol for pain management, however, please ensure you are not using over 4000 mg or 4 grams of acetaminophen per day. You pain medication has 325 mg of acetaminophen in each tablet. At this time, please do not use ibuprofen (Motrin, Advil) or naproxen (Aleve) for pain management as you are using the aspirin. When the aspirin course is completed in 4 to 6 weeks, you could use ibuprofen or naproxen for pain management (if this is allowed by your primary care provider). Wear the WALI hose during the day and you may remove these at night. You may discontinue use of the WALI hose if you can't tolerate wearing them. Elevate the limb to decrease swelling. Elevating the limb above the level of your heart will be most effective and elevating the foot above the level of the hips will decrease swelling at the toes and foot. Place ice to the area often. Place a towel between your skin and the blue pad. Take deep breaths throughout the day. Please keep the dressing (large bandaid looking dressing) in place until follow-up. Notify the Clinic if the dressing becomes saturated. It is normal to have swelling and bruising at the surgical site, as well as above and below the surgical site. Call the Clinic with questions or concerns - [phone] and leave a message for the nurse. - Discharge Plan *PRESCRIPTION DRUG MONITORING PROGRAM REVIEWED*: No *COPY OF PRESCRIPTION DRUG MONITORING REPORT IN PATIENT KENYA: No Prescriptions/Med Rec: Aspirin [Ecotrin EC] 325 mg PO BID #84 tab.ec Cyclobenzaprine [Flexeril] 5 mg PO BID PRN #20 tab PRN Reason: Spasms Acetaminophen/oxyCODONE [Percocet 325-5 MG] 1 - 2 each PO Q4H PRN #60 tab PRN Reason: Pain Home Medications: Home Meds Arginine HCl [l-Arginine] 1,000 mg PO BID 11/16/19 [History] Cholecalciferol (Vitamin D3) [Vitamin D3] 1,000 unit PO DAILY 11/16/19 [History] Glucosamine/D3/Boswellia Marlen [Osteo Bi-Flex Caplet] 1 tab PO BID 11/16/19 [History] Lactobacillus Acidophilus [Probiotic] 1 cap PO DAILY 11/16/19 [History] Losartan [Cozaar] 50 mg PO DAILY 11/16/19 [History] Metoprolol Tartrate 50 mg PO BID 11/16/19 [History] Pantoprazole Sodium [Protonix] 40 mg PO DAILY 11/16/19 [History] Ubidecarenone [Coq-10] 100 mg PO DAILY 11/16/19 [History] atorvaSTATin [Lipitor] 40 mg PO DAILY 11/16/19 [History] polyethylene glycoL 3350 [MiraLAX] 17 gm PO DAILY 11/16/19 [History] Focus 1 tab PO BID 01/11/20 [History] Acetaminophen [Tylenol Arthritis] 1,300 mg PO BID PRN #0 02/18/20 [Rx] Acetaminophen/oxyCODONE [Percocet 325-5 MG] 1 - 2 each PO Q4H PRN #60 tab 02/18/20 [Rx] Aspirin [Ecotrin EC] 325 mg PO BID #84 tab.ec 02/18/20 [Rx] Cyclobenzaprine [Flexeril] 5 mg PO BID PRN #20 tab 02/18/20 [Rx] Patient Handouts: Cyclobenzaprine tablets, Oxycodone tablets or capsules, Total Knee Replacement, Care After, Aspirin, ASA oral tablets Referrals: Izzy Jordan PA-C [[facility]] - 02/26/20 10:15 am (Follow up appointment scheduled for Wednesday, February 26, 2020 at 10:15 AM with Izzy Jordan PA-C at [facility]. 2nd follow up appointment scheduled for 03/05/2020 at 11:[address] [place] [address] Branch 3rd Follow up scheduled for 04/01/2020 at 11:15 am in [place] at [facility] with Izzy Jordan PA-C. ) - Discharge Summary/Plan Comment DC Time >30 min.: No - Patient Data Vitals - Most Recent: Last Vital Signs Temp 98.4 F 02/19/20 07:21 Pulse 87 02/19/20 09:12 Resp 15 02/19/20 07:21 BP 135/55 L 02/19/20 09:13 Pulse Ox 92 L 02/19/20 07:21 Weight - Most Recent: 160 lb I&O - Last 24 hours: Intake & Output 02/18/20 02/19/20 02/19/20 22:59 06:59 14:59 Intake Total 650 400 Output Total 300 Balance 350 400 Lab Results - Last 24 hrs: Laboratory Results - last 24 hr 02/19/20 Range/Units 06:02 WBC 6.47 (3.98-10.04) K/mm3 RBC 3.76 L (3.98-5.22) M/mm3 Hgb 10.6 L (11.2-15.7) gm/dl Hct 34.7 (34.1-44.9) % MCV 92.3 (79.4-94.8) fl MCH 28.2 (25.6-32.2) pg MCHC 30.5 L (32.2-35.5) g/dl RDW Std Deviation 47.0 H (36.4-46.3) fL Plt Count 154 L (182-369) K/mm3 MPV 10.1 (9.4-12.3) fl Med Orders - Current: Current Medications Aspirin (Ecotrin) 325 mg PO BID [facility] Bisacodyl (Dulcolax) 5 mg PO DAILY PRN PRN Reason: Constipation Cholecalciferol (Vitamin D3) 1,000 mcg PO DAILY [facility] Last Admin: 02/19/20 09:14 Dose: Not Given Documented by: Cyclobenzaprine HCl (Flexeril) 5 mg PO BID PRN PRN Reason: Spasms Last Admin: 02/19/20 07:47 Dose: 5 mg Documented by: Docusate Sodium (Colace) 100 mg PO BID [facility] Last Admin: 02/19/20 09:06 Dose: 100 mg Documented by: Cefazolin Sodium/Dextrose 2 gm (/ Premix) 50 mls @ 100 mls/hr IV Q8H [facility] Stop: 02/19/20 12:29 Last Admin: 02/19/20 04:17 Dose: 100 mls/hr Documented by: Losartan Potassium (Cozaar) 50 mg PO DAILY [facility] Last Admin: 02/19/20 09:13 Dose: 50 mg Documented by: Magnesium Hydroxide (Milk Of Magnesia) 30 ml PO BID PRN PRN Reason: Constipation Metoprolol Tartrate (Lopressor) 50 mg PO BID [facility] Last Admin: 02/19/20 09:12 Dose: 50 mg Documented by: Morphine Sulfate (Morphine) 2 mg IVPUSH Q2H PRN PRN Reason: Breakthrough Pain Naloxone HCl (Narcan) 0.1 mg IVPUSH Q5M PRN PRN Reason: Oversedation Ondansetron HCl (Zofran) 4 mg IVPUSH Q6H PRN PRN Reason: Nausea/Vomiting Oxycodone/Acetaminophen (Percocet 325-5 Mg) 1 - 2 tab PO Q4H PRN PRN Reason: Pain Last Admin: 02/19/20 04:22 Dose: 1 tab Documented by: Pantoprazole Sodium (Protonix) 40 mg PO DAILY [facility] Last Admin: 02/19/20 09:07 Dose: 40 mg Documented by: Polyethylene Glycol (Miralax) 17 gm PO DAILY [facility] Last Admin: 02/19/20 09:10 Dose: Not Given Documented by: Senna (Senna) 8.6 mg PO BID PRN PRN Reason: Constipation Simvastatin (Zocor) 10 mg PO DAILY [facility] Last Admin: 02/19/20 09:10 Dose: 10 mg Documented by: Discontinued Medications Acetaminophen (Tylenol) 975 mg PO ONETIME [facility] Stop: 02/18/20 13:00 Acetaminophen (Tylenol) 975 mg PO ONETIME [facility] Stop: 02/18/20 16:00 Last Admin: 02/18/20 10:03 Dose: 975 mg Documented by: Bupivacaine HCl (Sensorcaine-Mpf 0.25%) Confirm Administered Dose 30 ml .ROUTE .STK-MED ONE Stop: 02/18/20 11:34 Last Admin: 02/18/20 13:28 Dose: 30 ml Documented by: Cefazolin Sodium (Ancef) Confirm Administered Dose 2 gm .ROUTE .STK-MED ONE Stop: 02/18/20 11:13 Morphine Sulfate 8 mg/Epinephrine HCl 0.3 mg/Cefuroxime Sodium 750 mg/Ketorolac Tromethamine 30 mg/Sodium Chloride 7.9 ml 0 mg .XX ASDIRECTED PRN PRN Reason: Pain Stop: 02/11/20 23:00 Morphine Sulfate 8 mg/Epinephrine HCl 0.3 mg/Cefuroxime Sodium 750 mg/Ketorolac Tromethamine 30 mg/Sodium Chloride 7.9 ml 0 mg .XX ASDIRECTED ONE Stop: 02/18/20 12:01 Last Admin: 02/18/20 15:47 Dose: Not Given Documented by: Ephedrine Sulfate (Ephedrine 25 Mg/5 Ml Syringe) Confirm Administered Dose 0 mg IV .STK-MED ONE Stop: 02/18/20 12:10 Epinephrine HCl (Adrenalin) Confirm Administered Dose 1 mg .ROUTE .STK-MED ONE Stop: 02/18/20 05:26 Famotidine (Pepcid) 20 mg PO Q12H [facility] Last Admin: 02/19/20 04:18 Dose: 20 mg Documented by: Fentanyl (Sublimaze) Confirm Administered Dose 100 mcg .ROUTE .STK-MED ONE Stop: 02/18/20 11:13 Fentanyl (Sublimaze) 50 mcg IVPUSH Q5M PRN PRN Reason: Pain Stop: 02/18/20 16:00 Lactated Ringer's (Ringers, Lactated) 1,000 mls @ 125 mls/hr IV ASDIRECTED [facility] Stop: 01/14/20 23:00 Lactated Ringer's (Ringers, Lactated) 1,000 mls @ 125 mls/hr IV ASDIRECTED [facility] Stop: 02/18/20 23:00 Last Admin: 02/18/20 09:50 Dose: 125 mls/hr Documented by: Lidocaine HCl (Xylocaine-Mpf 1%) Confirm Administered Dose 4 mls @ as directed .ROUTE .STK-MED ONE Stop: 02/18/20 11:10 Lidocaine HCl (Xylocaine-Mpf 1%) Confirm Administered Dose 2 mls @ as directed .ROUTE .STK-MED ONE Stop: 02/18/20 11:56 Ketorolac Tromethamine (Toradol) 15 mg IVPUSH Q6H PRN PRN Reason: Pain Last Admin: 02/19/20 07:45 Dose: 15 mg Documented by: Ketorolac Tromethamine (Toradol) Confirm Administered Dose 15 mg .ROUTE .STK-MED ONE Stop: 02/18/20 13:32 Lidocaine/Sodium Bicarbonate (Buffered Lidocaine 1% In Ns 8.4%) 0.25 ml IDERM ONETIME PRN PRN Reason: Prior to IV Start Stop: 01/14/20 18:00 Lidocaine/Sodium Bicarbonate (Buffered Lidocaine 1% In Ns 8.4%) 0.25 ml IDERM ONETIME PRN PRN Reason: Prior to IV Start Stop: 02/18/20 18:00 Last Admin: 02/18/20 09:56 Dose: 0.25 ml Documented by: Midazolam HCl (Versed 1 Mg/Ml) Confirm Administered Dose 2 mg .ROUTE .STK-MED ONE Stop: 02/18/20 11:12 Miscellaneous Medication (Phenylephrine 1 Mg/10 Ml-Ns) Confirm Administered Dose 1 mg .ROUTE .STK-MED ONE Stop: 02/18/20 12:11 Non-Formulary Medication (Ubidecarenone) 100 mg PO DAILY [facility] Ondansetron HCl (Zofran) 4 mg IVPUSH ONETIME PRN PRN Reason: Nausea/Vomiting Stop: 02/18/20 16:00 Ondansetron HCl (Zofran) Confirm Administered Dose 4 mg .ROUTE .STK-MED ONE Stop: 02/18/20 13:32 Oxycodone HCl (Oxycontin) 10 mg PO ONETIME [facility] Stop: 02/18/20 13:00 Oxycodone HCl (Oxycontin) 10 mg PO ONETIME [facility] Stop: 02/18/20 16:00 Last Admin: 02/18/20 10:03 Dose: 10 mg Documented by: Pregabalin (Lyrica) 50 mg PO ONETIME [facility] Stop: 02/18/20 12:00 Last Admin: 02/18/20 10:03 Dose: 50 mg Documented by: Propofol (Diprivan 20 Ml) Confirm Administered Dose 200 mg .ROUTE .STK-MED ONE Stop: 02/18/20 11:10 Propofol (Diprivan 20 Ml) Confirm Administered Dose 200 mg .ROUTE .ST-MED ONE Stop: 02/18/20 13:01 Ropivacaine (Naropin 0.5%) Confirm Administered Dose 30 ml .ROUTE .ST-MED ONE Stop: 02/18/20 05:26 Sodium Chloride (Saline Flush) 10 ml FLUSH ASDIRECTED PRN PRN Reason: Keep Vein Open Stop: 01/14/20 18:00 Sodium Chloride (Saline Flush) 10 ml FLUSH ASDIRECTED PRN PRN Reason: Keep Vein Open Stop: 02/18/20 18:00 Last Admin: 02/19/20 07:50 Dose: 10 ml Documented by: Tranexamic Acid (Cyklokapron) Confirm Administered Dose 1,000 mg .ROUTE .ST-MED ONE Stop: 02/18/20 11:33 Last Admin: 02/18/20 13:40 Dose: 1,000 mg Documented by: Tranexamic Acid (Cyklokapron) Confirm Administered Dose 1,000 mg .ROUTE .ST-MED ONE Stop: 02/18/20 11:38 Vancomycin HCl (Vancomycin) Confirm Administered Dose 1 gm .ROUTE .ST-MED ONE Stop: 02/18/20 11:34 Last Admin: 02/18/20 13:40 Dose: 1 gm Documented by:
--- NOTE | 2020-02-19 12:41 | PCM.CONSN ---
<Vi Morin M - Last Filed: 02/19/20 13:05> - General Info Date of Service: 02/19/20 Admission Dx/Problem (Free Text): Admission Diagnosis/Problem Admission Diagnosis/Problem Osteoarthritis of knee Subjective Update: Doing well today. Vital signs are stable patient is sitting up in the chair at time of rounds and denies any complaints. Functional Status: Reports: Pain Controlled, Tolerating Diet, Urinating, Incentive Spirometry - Review of Systems General: Reports: No Symptoms HEENT: Reports: No Symptoms Pulmonary: Reports: No Symptoms Cardiovascular: Reports: No Symptoms. Denies: Chest Pain, Palpitations, Edema Gastrointestinal: Reports: No Symptoms Genitourinary: Reports: No Symptoms Musculoskeletal: Reports: No Symptoms Skin: Reports: Other (Left leg wrapped with an Harley bandage from surgery.) Neurological: Reports: No Symptoms Psychiatric: Reports: No Symptoms - Patient Data Vitals - Most Recent: Last Vital Signs Temp 98.4 F 02/19/20 07:21 Pulse 87 02/19/20 09:12 Resp 15 02/19/20 07:21 BP 135/55 L 02/19/20 09:13 Pulse Ox 92 L 02/19/20 07:21 Weight - Most Recent: 72.575 kg I&O - Last 24 Hours: Intake & Output 02/18/20 02/19/20 02/19/20 22:59 06:59 14:59 Intake Total 650 400 300 Output Total 300 Balance 350 400 300 Lab Results Last 24 Hours: Laboratory Results - last 24 hr 02/19/20 Range/Units 06:02 WBC 6.47 (3.98-10.04) K/mm3 RBC 3.76 L (3.98-5.22) M/mm3 Hgb 10.6 L (11.2-15.7) gm/dl Hct 34.7 (34.1-44.9) % MCV 92.3 (79.4-94.8) fl MCH 28.2 (25.6-32.2) pg MCHC 30.5 L (32.2-35.5) g/dl RDW Std Deviation 47.0 H (36.4-46.3) fL Plt Count 154 L (182-369) K/mm3 MPV 10.1 (9.4-12.3) fl Med Orders - Current: Current Medications Aspirin (Ecotrin) 325 mg PO BID [facility] Bisacodyl (Dulcolax) 5 mg PO DAILY PRN PRN Reason: Constipation Cholecalciferol (Vitamin D3) 1,000 mcg PO DAILY [facility] Last Admin: 02/19/20 09:14 Dose: Not Given Documented by: Cyclobenzaprine HCl (Flexeril) 5 mg PO BID PRN PRN Reason: Spasms Last Admin: 02/19/20 07:47 Dose: 5 mg Documented by: Docusate Sodium (Colace) 100 mg PO BID [facility] Last Admin: 02/19/20 09:06 Dose: 100 mg Documented by: Losartan Potassium (Cozaar) 50 mg PO DAILY [facility] Last Admin: 02/19/20 09:13 Dose: 50 mg Documented by: Magnesium Hydroxide (Milk Of Magnesia) 30 ml PO BID PRN PRN Reason: Constipation Metoprolol Tartrate (Lopressor) 50 mg PO BID [facility] Last Admin: 02/19/20 09:12 Dose: 50 mg Documented by: Morphine Sulfate (Morphine) 2 mg IVPUSH Q2H PRN PRN Reason: Breakthrough Pain Naloxone HCl (Narcan) 0.1 mg IVPUSH Q5M PRN PRN Reason: Oversedation Ondansetron HCl (Zofran) 4 mg IVPUSH Q6H PRN PRN Reason: Nausea/Vomiting Oxycodone/Acetaminophen (Percocet 325-5 Mg) 1 - 2 tab PO Q4H PRN PRN Reason: Pain Last Admin: 02/19/20 10:52 Dose: 2 tab Documented by: Pantoprazole Sodium (Protonix) 40 mg PO DAILY [facility] Last Admin: 02/19/20 09:07 Dose: 40 mg Documented by: Polyethylene Glycol (Miralax) 17 gm PO DAILY [facility] Last Admin: 02/19/20 09:10 Dose: Not Given Documented by: Senna (Senna) 8.6 mg PO BID PRN PRN Reason: Constipation Simvastatin (Zocor) 10 mg PO DAILY [facility] Last Admin: 02/19/20 09:10 Dose: 10 mg Documented by: Discontinued Medications Acetaminophen (Tylenol) 975 mg PO ONETIME [facility] Stop: 02/18/20 13:00 Acetaminophen (Tylenol) 975 mg PO ONETIME [facility] Stop: 02/18/20 16:00 Last Admin: 02/18/20 10:03 Dose: 975 mg Documented by: Bupivacaine HCl (Sensorcaine-Mpf 0.25%) Confirm Administered Dose 30 ml .ROUTE .STK-MED ONE Stop: 02/18/20 11:34 Last Admin: 02/18/20 13:28 Dose: 30 ml Documented by: Cefazolin Sodium (Ancef) Confirm Administered Dose 2 gm .ROUTE .STK-MED ONE Stop: 02/18/20 11:13 Morphine Sulfate 8 mg/Epinephrine HCl 0.3 mg/Cefuroxime Sodium 750 mg/Ketorolac Tromethamine 30 mg/Sodium Chloride 7.9 ml 0 mg .XX ASDIRECTED PRN PRN Reason: Pain Stop: 02/11/20 23:00 Morphine Sulfate 8 mg/Epinephrine HCl 0.3 mg/Cefuroxime Sodium 750 mg/Ketorolac Tromethamine 30 mg/Sodium Chloride 7.9 ml 0 mg .XX ASDIRECTED ONE Stop: 02/18/20 12:01 Last Admin: 02/18/20 15:47 Dose: Not Given Documented by: Ephedrine Sulfate (Ephedrine 25 Mg/5 Ml Syringe) Confirm Administered Dose 0 mg IV .STK-MED ONE Stop: 02/18/20 12:10 Epinephrine HCl (Adrenalin) Confirm Administered Dose 1 mg .ROUTE .STK-MED ONE Stop: 02/18/20 05:26 Famotidine (Pepcid) 20 mg PO Q12H [facility] Last Admin: 02/19/20 04:18 Dose: 20 mg Documented by: Fentanyl (Sublimaze) Confirm Administered Dose 100 mcg .ROUTE .STK-MED ONE Stop: 02/18/20 11:13 Fentanyl (Sublimaze) 50 mcg IVPUSH Q5M PRN PRN Reason: Pain Stop: 02/18/20 16:00 Lactated Ringer's (Ringers, Lactated) 1,000 mls @ 125 mls/hr IV ASDIRECTED [facility] Stop: 01/14/20 23:00 Lactated Ringer's (Ringers, Lactated) 1,000 mls @ 125 mls/hr IV ASDIRECTED [facility] Stop: 02/18/20 23:00 Last Admin: 02/18/20 09:50 Dose: 125 mls/hr Documented by: Cefazolin Sodium/Dextrose 2 gm (/ Premix) 50 mls @ 100 mls/hr IV Q8H [facility] Stop: 02/19/20 12:29 Last Admin: 02/19/20 11:34 Dose: 100 mls/hr Documented by: Lidocaine HCl (Xylocaine-Mpf 1%) Confirm Administered Dose 4 mls @ as directed .ROUTE .STK-MED ONE Stop: 02/18/20 11:10 Lidocaine HCl (Xylocaine-Mpf 1%) Confirm Administered Dose 2 mls @ as directed .ROUTE .STK-MED ONE Stop: 02/18/20 11:56 Ketorolac Tromethamine (Toradol) 15 mg IVPUSH Q6H PRN PRN Reason: Pain Last Admin: 02/19/20 07:45 Dose: 15 mg Documented by: Ketorolac Tromethamine (Toradol) Confirm Administered Dose 15 mg .ROUTE .STK-MED ONE Stop: 02/18/20 13:32 Lidocaine/Sodium Bicarbonate (Buffered Lidocaine 1% In Ns 8.4%) 0.25 ml IDERM ONETIME PRN PRN Reason: Prior to IV Start Stop: 01/14/20 18:00 Lidocaine/Sodium Bicarbonate (Buffered Lidocaine 1% In Ns 8.4%) 0.25 ml IDERM ONETIME PRN PRN Reason: Prior to IV Start Stop: 02/18/20 18:00 Last Admin: 02/18/20 09:56 Dose: 0.25 ml Documented by: Midazolam HCl (Versed 1 Mg/Ml) Confirm Administered Dose 2 mg .ROUTE .STK-MED ONE Stop: 02/18/20 11:12 Miscellaneous Medication (Phenylephrine 1 Mg/10 Ml-Ns) Confirm Administered Dose 1 mg .ROUTE .STK-MED ONE Stop: 02/18/20 12:11 Non-Formulary Medication (Ubidecarenone) 100 mg PO DAILY [facility] Ondansetron HCl (Zofran) 4 mg IVPUSH ONETIME PRN PRN Reason: Nausea/Vomiting Stop: 02/18/20 16:00 Ondansetron HCl (Zofran) Confirm Administered Dose 4 mg .ROUTE .STK-MED ONE Stop: 02/18/20 13:32 Oxycodone HCl (Oxycontin) 10 mg PO ONETIME [facility] Stop: 02/18/20 13:00 Oxycodone HCl (Oxycontin) 10 mg PO ONETIME [facility] Stop: 02/18/20 16:00 Last Admin: 02/18/20 10:03 Dose: 10 mg Documented by: Pregabalin (Lyrica) 50 mg PO ONETIME [facility] Stop: 02/18/20 12:00 Last Admin: 02/18/20 10:03 Dose: 50 mg Documented by: Propofol (Diprivan 20 Ml) Confirm Administered Dose 200 mg .ROUTE .STK-MED ONE Stop: 02/18/20 11:10 Propofol (Diprivan 20 Ml) Confirm Administered Dose 200 mg .ROUTE .STK-MED ONE Stop: 02/18/20 13:01 Ropivacaine (Naropin 0.5%) Confirm Administered Dose 30 ml .ROUTE .STK-MED ONE Stop: 02/18/20 05:26 Sodium Chloride (Saline Flush) 10 ml FLUSH ASDIRECTED PRN PRN Reason: Keep Vein Open Stop: 01/14/20 18:00 Sodium Chloride (Saline Flush) 10 ml FLUSH ASDIRECTED PRN PRN Reason: Keep Vein Open Stop: 02/18/20 18:00 Last Admin: 02/19/20 11:35 Dose: 10 ml Documented by: Tranexamic Acid (Cyklokapron) Confirm Administered Dose 1,000 mg .ROUTE .STK-MED ONE Stop: 02/18/20 11:33 Last Admin: 02/18/20 13:40 Dose: 1,000 mg Documented by: Tranexamic Acid (Cyklokapron) Confirm Administered Dose 1,000 mg .ROUTE .STK-MED ONE Stop: 02/18/20 11:38 Vancomycin HCl (Vancomycin) Confirm Administered Dose 1 gm .ROUTE .STK-MED ONE Stop: 02/18/20 11:34 Last Admin: 02/18/20 13:40 Dose: 1 gm Documented by: - Exam Quality Assessment: No: Supplemental Oxygen General: Alert, Oriented, Cooperative, No Acute Distress HEENT: Pupils Equal, Pupils Reactive, Mucous Membr. Moist/[place] Neck: Supple, Trachea Midline. No: Lymphadenopathy Lungs: Clear to Auscultation, Normal Respiratory Effort Cardiovascular: Regular Rate, Regular Rhythm, No Murmurs GI/Abdominal Exam: Normal Bowel Sounds, Soft, Non-Tender, No Distention (Female) Exam: Deferred Back Exam: Normal Inspection, Full Range of Motion Extremities: Normal Inspection, Normal Range of Motion, Non-Tender, No Pedal Edema, Normal Capillary Refill, Other (Dressing noted to left leg due to surgery.) Peripheral Pulses: 2+: Radial (L), Radial (R), Dorsalis Pedis (L), Dorsalis Pedis (R) Skin: Warm, Dry, Other (Dressing intact to left leg.) Wound/Incisions: Dressing Dry and Intact (Left leg) Neurological: No New Focal Deficit Psy/Mental Status: Alert, Normal Affect, Normal Mood Sepsis Event Note - Evaluation Sepsis Screening Result: No Definite Risk - Focused Exam Vital Signs: Vital Signs Temp Pulse Resp BP Pulse Ox 02/19/20 09:13 135/55 L 02/19/20 09:12 87 135/55 L 02/19/20 07:21 98.4 F 87 15 135/55 L 92 L 02/19/20 04:26 99.0 F 77 16 136/51 L 95 Consult PN Assessment/Plan POD#: 1 Procedures: Procedures COMPLETE CBC AUTOMATED (11/19/19) COMPREHEN METABOLIC PANEL (11/19/19) GAIT TRAINING THERAPY (11/19/19) MEASURE BLOOD OXYGEN LEVEL (11/19/19) MEASURE BLOOD OXYGEN LEVEL (11/19/19) MR-STAPH DNA AMP PROBE (11/19/19) OFFICE/OUTPATIENT VISIT EST (11/19/19) OT EVAL LOW COMPLEX 30 MIN (11/19/19) PT EVAL LOW COMPLEX 20 MIN (11/19/19) ROUTINE VENIPUNCTURE (11/19/19) SELF CARE MNGMENT TRAINING (11/19/19) THERAPEUTIC EXERCISES (11/19/19) X-RAY EXAM OF KNEE 1 OR 2 (11/19/19) (1) CAD (coronary artery disease) SNOMED Code(s): 94696510 Code(s): I25.10 - ATHSCL HEART DISEASE OF [place] CORONARY ARTERY W/O ANG PCTRS Priority: Medium Qualifiers: Coronary Disease-Associated Artery/Lesion type: unspecified vessel or lesion type [place] vs. transplanted heart: [place] heart Associated angina: angina presence unspecified Qualified Code(s): I25.10 - Atherosclerotic heart disease of [place] coronary artery without angina pectoris (2) HTN (hypertension) SNOMED Code(s): 03043075 Code(s): I10 - ESSENTIAL (PRIMARY) HYPERTENSION Priority: Medium Qualifiers: Hypertension type: essential hypertension Qualified Code(s): I10 - Essential (primary) hypertension (3) History of aortic valve replacement with bioprosthetic valve SNOMED Code(s): 5782997681285 Code(s): Z95.3 - PRESENCE OF XENOGENIC HEART VALVE Priority: Medium Onset Date: ~01/15/19 (4) Pacemaker SNOMED Code(s): 356323231 Code(s): Z95.0 - PRESENCE OF CARDIAC PACEMAKER Priority: Medium Problem List Initiated/Reviewed/Updated: Yes Plan: I would like to thank Dr. Branch for participation in care with his patient. The patient does have a history of coronary artery disease and she does have a bioprosthetic valve. The patient has used aspirin as an anticoagulant successfully and this should be continued. The patient also has a history of coronary artery disease and I would recommend that we continue with telemetry. The patient's vital signs will be monitored and her antihypertensives have been restarted. The patient should have, when able, appropriate diabetic diet due to her prediabetes. Recommend a hemoglobin A1c. Internal medicine will follow with laboratory studies that have been ordered. 02/19/20 Patient's vital signs are stable. Intake and output is unremarkable. Labs today are unremarkable. At this time patient is stable no further orders. <Nirmal Cantu - Last Filed: 02/19/20 15:28> - Patient Data Vitals - Most Recent: Last Vital Signs Temp 36.9 C 02/19/20 07:21 Pulse 87 02/19/20 09:12 Resp 15 02/19/20 07:21 BP 135/55 L 02/19/20 09:13 Pulse Ox 92 L 02/19/20 07:21 I&O - Last 24 Hours: Intake & Output 02/19/20 02/19/20 02/19/20 06:59 14:59 22:59 Intake Total 400 300 Balance 400 300 Lab Results Last 24 Hours: Laboratory Results - last 24 hr 02/19/20 Range/Units 06:02 WBC 6.47 (3.98-10.04) K/mm3 RBC 3.76 L (3.98-5.22) M/mm3 Hgb 10.6 L (11.2-15.7) gm/dl Hct 34.7 (34.1-44.9) % MCV 92.3 (79.4-94.8) fl MCH 28.2 (25.6-32.2) pg MCHC 30.5 L (32.2-35.5) g/dl RDW Std Deviation 47.0 H (36.4-46.3) fL Plt Count 154 L (182-369) K/mm3 MPV 10.1 (9.4-12.3) fl Med Orders - Current: Current Medications Discontinued Medications Acetaminophen (Tylenol) 975 mg PO ONETIME [facility] Stop: 02/18/20 13:00 Acetaminophen (Tylenol) 975 mg PO ONETIME [facility] Stop: 02/18/20 16:00 Last Admin: 02/18/20 10:03 Dose: 975 mg Documented by: Aspirin (Ecotrin) 325 mg PO BID [facility] Last Admin: 02/19/20 09:00 Dose: 325 mg Documented by: Bisacodyl (Dulcolax) 5 mg PO DAILY PRN PRN Reason: Constipation Bupivacaine HCl (Sensorcaine-Mpf 0.25%) Confirm Administered Dose 30 ml .ROUTE .STK-MED ONE Stop: 02/18/20 11:34 Last Admin: 02/18/20 13:28 Dose: 30 ml Documented by: Cefazolin Sodium (Ancef) Confirm Administered Dose 2 gm .ROUTE .STK-MED ONE Stop: 02/18/20 11:13 Cholecalciferol (Vitamin D3) 1,000 mcg PO DAILY [facility] Last Admin: 02/19/20 09:14 Dose: Not Given Documented by: Morphine Sulfate 8 mg/Epinephrine HCl 0.3 mg/Cefuroxime Sodium 750 mg/Ketorolac Tromethamine 30 mg/Sodium Chloride 7.9 ml 0 mg .XX ASDIRECTED PRN PRN Reason: Pain Stop: 02/11/20 23:00 Morphine Sulfate 8 mg/Epinephrine HCl 0.3 mg/Cefuroxime Sodium 750 mg/Ketorolac Tromethamine 30 mg/Sodium Chloride 7.9 ml 0 mg .XX ASDIRECTED ONE Stop: 02/18/20 12:01 Last Admin: 02/18/20 15:47 Dose: Not Given Documented by: Cyclobenzaprine HCl (Flexeril) 5 mg PO BID PRN PRN Reason: Spasms Last Admin: 02/19/20 07:47 Dose: 5 mg Documented by: Docusate Sodium (Colace) 100 mg PO BID [facility] Last Admin: 02/19/20 09:06 Dose: 100 mg Documented by: Ephedrine Sulfate (Ephedrine 25 Mg/5 Ml Syringe) Confirm Administered Dose 0 mg IV .STK-MED ONE Stop: 02/18/20 12:10 Epinephrine HCl (Adrenalin) Confirm Administered Dose 1 mg .ROUTE .STK-MED ONE Stop: 02/18/20 05:26 Famotidine (Pepcid) 20 mg PO Q12H [facility] Last Admin: 02/19/20 04:18 Dose: 20 mg Documented by: Fentanyl (Sublimaze) Confirm Administered Dose 100 mcg .ROUTE .STK-MED ONE Stop: 02/18/20 11:13 Fentanyl (Sublimaze) 50 mcg IVPUSH Q5M PRN PRN Reason: Pain Stop: 02/18/20 16:00 Lactated Ringer's (Ringers, Lactated) 1,000 mls @ 125 mls/hr IV ASDIRECTED [facility] Stop: 01/14/20 23:00 Lactated Ringer's (Ringers, Lactated) 1,000 mls @ 125 mls/hr IV ASDIRECTED [facility] Stop: 02/18/20 23:00 Last Admin: 02/18/20 09:50 Dose: 125 mls/hr Documented by: Cefazolin Sodium/Dextrose 2 gm (/ Premix) 50 mls @ 100 mls/hr IV Q8H [facility] Stop: 02/19/20 12:29 Last Admin: 02/19/20 11:34 Dose: 100 mls/hr Documented by: Lidocaine HCl (Xylocaine-Mpf 1%) Confirm Administered Dose 4 mls @ as directed .ROUTE .STK-MED ONE Stop: 02/18/20 11:10 Lidocaine HCl (Xylocaine-Mpf 1%) Confirm Administered Dose 2 mls @ as directed .ROUTE .STK-MED ONE Stop: 02/18/20 11:56 Ketorolac Tromethamine (Toradol) 15 mg IVPUSH Q6H PRN PRN Reason: Pain Last Admin: 02/19/20 07:45 Dose: 15 mg Documented by: Ketorolac Tromethamine (Toradol) Confirm Administered Dose 15 mg .ROUTE .STK-MED ONE Stop: 02/18/20 13:32 Lidocaine/Sodium Bicarbonate (Buffered Lidocaine 1% In Ns 8.4%) 0.25 ml IDERM ONETIME PRN PRN Reason: Prior to IV Start Stop: 01/14/20 18:00 Lidocaine/Sodium Bicarbonate (Buffered Lidocaine 1% In Ns 8.4%) 0.25 ml IDERM ONETIME PRN PRN Reason: Prior to IV Start Stop: 02/18/20 18:00 Last Admin: 02/18/20 09:56 Dose: 0.25 ml Documented by: Losartan Potassium (Cozaar) 50 mg PO DAILY [facility] Last Admin: 02/19/20 09:13 Dose: 50 mg Documented by: Magnesium Hydroxide (Milk Of Magnesia) 30 ml PO BID PRN PRN Reason: Constipation Metoprolol Tartrate (Lopressor) 50 mg PO BID [facility] Last Admin: 02/19/20 09:12 Dose: 50 mg Documented by: Midazolam HCl (Versed 1 Mg/Ml) Confirm Administered Dose 2 mg .ROUTE .STK-MED ONE Stop: 02/18/20 11:12 Miscellaneous Medication (Phenylephrine 1 Mg/10 Ml-Ns) Confirm Administered Dose 1 mg .ROUTE .STK-MED ONE Stop: 02/18/20 12:11 Morphine Sulfate (Morphine) 2 mg IVPUSH Q2H PRN PRN Reason: Breakthrough Pain Naloxone HCl (Narcan) 0.1 mg IVPUSH Q5M PRN PRN Reason: Oversedation Non-Formulary Medication (Ubidecarenone) 100 mg PO DAILY [facility] Ondansetron HCl (Zofran) 4 mg IVPUSH ONETIME PRN PRN Reason: Nausea/Vomiting Stop: 02/18/20 16:00 Ondansetron HCl (Zofran) Confirm Administered Dose 4 mg .ROUTE .STK-MED ONE Stop: 02/18/20 13:32 Ondansetron HCl (Zofran) 4 mg IVPUSH Q6H PRN PRN Reason: Nausea/Vomiting Oxycodone HCl (Oxycontin) 10 mg PO ONETIME [facility] Stop: 02/18/20 13:00 Oxycodone HCl (Oxycontin) 10 mg PO ONETIME [facility] Stop: 02/18/20 16:00 Last Admin: 02/18/20 10:03 Dose: 10 mg Documented by: Oxycodone/Acetaminophen (Percocet 325-5 Mg) 1 - 2 tab PO Q4H PRN PRN Reason: Pain Last Admin: 02/19/20 10:52 Dose: 2 tab Documented by: Pantoprazole Sodium (Protonix) 40 mg PO DAILY [facility] Last Admin: 02/19/20 09:07 Dose: 40 mg Documented by: Polyethylene Glycol (Miralax) 17 gm PO DAILY [facility] Last Admin: 02/19/20 09:10 Dose: Not Given Documented by: Pregabalin (Lyrica) 50 mg PO ONETIME [facility] Stop: 02/18/20 12:00 Last Admin: 02/18/20 10:03 Dose: 50 mg Documented by: Propofol (Diprivan 20 Ml) Confirm Administered Dose 200 mg .ROUTE .STK-MED ONE Stop: 02/18/20 11:10 Propofol (Diprivan 20 Ml) Confirm Administered Dose 200 mg .ROUTE .STK-MED ONE Stop: 02/18/20 13:01 Ropivacaine (Naropin 0.5%) Confirm Administered Dose 30 ml .ROUTE .STK-MED ONE Stop: 02/18/20 05:26 Senna (Senna) 8.6 mg PO BID PRN PRN Reason: Constipation Simvastatin (Zocor) 10 mg PO DAILY [facility] Last Admin: 02/19/20 09:10 Dose: 10 mg Documented by: Sodium Chloride (Saline Flush) 10 ml FLUSH ASDIRECTED PRN PRN Reason: Keep Vein Open Stop: 01/14/20 18:00 Sodium Chloride (Saline Flush) 10 ml FLUSH ASDIRECTED PRN PRN Reason: Keep Vein Open Stop: 02/18/20 18:00 Last Admin: 02/19/20 11:35 Dose: 10 ml Documented by: Tranexamic Acid (Cyklokapron) Confirm Administered Dose 1,000 mg .ROUTE .STK-MED ONE Stop: 02/18/20 11:33 Last Admin: 02/18/20 13:40 Dose: 1,000 mg Documented by: Tranexamic Acid (Cyklokapron) Confirm Administered Dose 1,000 mg .ROUTE .STK-MED ONE Stop: 02/18/20 11:38 Vancomycin HCl (Vancomycin) Confirm Administered Dose 1 gm .ROUTE .STK-MED ONE Stop: 02/18/20 11:34 Last Admin: 02/18/20 13:40 Dose: 1 gm Documented by: Sepsis Event Note - Focused Exam Vital Signs: Vital Signs Temp Pulse Resp BP Pulse Ox 02/19/20 09:13 135/55 L 02/19/20 09:12 87 135/55 L 02/19/20 07:21 36.9 C 87 15 135/55 L 92 L 02/19/20 04:26 37.2 C 77 16 136/51 L 95 Consult PN Assessment/Plan Procedures: Procedures COMPLETE CBC AUTOMATED (11/19/19) COMPREHEN METABOLIC PANEL (11/19/19) GAIT TRAINING THERAPY (11/19/19) MEASURE BLOOD OXYGEN LEVEL (11/19/19) MEASURE BLOOD OXYGEN LEVEL (11/19/19) MR-STAPH DNA AMP PROBE (11/19/19) OFFICE/OUTPATIENT VISIT EST (11/19/19) OT EVAL LOW COMPLEX 30 MIN (11/19/19) PT EVAL LOW COMPLEX 20 MIN (11/19/19) ROUTINE VENIPUNCTURE (11/19/19) SELF CARE MNGMENT TRAINING (11/19/19) THERAPEUTIC EXERCISES (11/19/19) X-RAY EXAM OF KNEE 1 OR 2 (11/19/19) (1) CAD (coronary artery disease) SNOMED Code(s): 48305752 Code(s): I25.10 - ATHSCL HEART DISEASE OF [place] CORONARY ARTERY W/O ANG PCTRS Priority: Medium Qualifiers: Coronary Disease-Associated Artery/Lesion type: unspecified vessel or lesion type [place] vs. transplanted heart: [place] heart Associated angina: angina presence unspecified Qualified Code(s): I25.10 - Atherosclerotic heart disease of [place] coronary artery without angina pectoris (2) HTN (hypertension) SNOMED Code(s): 93845302 Code(s): I10 - ESSENTIAL (PRIMARY) HYPERTENSION Priority: Medium Qualifiers: Hypertension type: essential hypertension Qualified Code(s): I10 - Essential (primary) hypertension (3) History of aortic valve replacement with bioprosthetic valve SNOMED Code(s): 6979655705504 Code(s): Z95.3 - PRESENCE OF XENOGENIC HEART VALVE Priority: Medium Onset Date: ~01/15/19 (4) Pacemaker SNOMED Code(s): 634202920 Code(s): Z95.0 - PRESENCE OF CARDIAC PACEMAKER Priority: Medium Plan: I have seen and examined the patient independent of nurse practitioner Vi Morin and I have discussed the case with her. I have reviewed and agree with the assessment and plan as outlined for this patient by her. Please see orders.
--- NOTE | 2020-02-26 16:16 | CR ---
PROCEDURE INFORMATION: Exam: XR Left Knee Exam date and time: 02/18/2020 2:44 PM Age: 79 years old Clinical indication: Device placement; Joint replacement hardware; Prior surgery; Surgery type: Left tka, HX of orif left tibia TECHNIQUE: Imaging protocol: XR Left knee. Views: 1 or 2 views. COMPARISON: CR Knee 3V Rt, Knee Standing AP Bi 01/04/2020 11:18 AM FINDINGS: Bones/joints: There is a new left knee arthroplasty. Alignment is anatomic. Plate/screw fixation device proximal tibia. Healed fractures with cortical thickening proximal to mid tibia and fibular shaft. Soft tissues: Soft tissue gas presumably postoperative. IMPRESSION: Left knee arthroplasty in place. Alignment is anatomic. Thank you for allowing us to participate in the care of your patient. Dictated and Authenticated by: Leon Hicks MD 02/18/2020 4:30 PM Central Time ([place] & [place]) CONFIDENTIALITY STATEMENT This report is intended only for use by the referring physician, and only in accordance with law. If you received this in error, call [phone]. Page 1 of 1 MTDD
--- NOTE | 2020-02-26 17:11 | PCM.OPNOTE ---
- General Post-Op/Procedure Note Date of Surgery/Procedure: 02/18/20 Operative Procedure(s): left total knee arthroplasty with hardware removal left tibia Pre Op Diagnosis: left knee osteoarthrosis with left tibial hardware Post-Op Diagnosis: Same Anesthesia Technique: Local, MAC, Spinal Primary Surgeon: Neel Branch Anesthesia Provider: Ivy Rodriguez Program Manager Environmental Planning: Izzy Jordan Program Manager Environmental Planning: Perlita Olvera EBCarmelita in mLs: 5 Complications: None Condition: Good Free Text/Narrative:: 08/03 11mm 29x9
--- NOTE | 2020-02-26 18:10 | OR ---
DATE OF OPERATION: 02/18/2020 SURGEON: Neel Branch MD OPERATION PERFORMED: Left total knee arthroplasty with hardware removal, left tibia. PREOPERATIVE DIAGNOSIS: Left knee osteoarthritis with left tibial hardware. POSTOPERATIVE DIAGNOSIS: Left knee osteoarthritis with left tibial hardware. ANESTHESIA: Local MAC with spinal. ANESTHESIA PROVIDER: Ivy Rodriguez CRNA. ASSISTANTS: Izzy Jordan PA-C, and Perlita Olvera LPN. ESTIMATED BLOOD LOSS: 5 mL. COMPLICATIONS: None. CONDITION: Stable. IMPLANTS: 1. [place] size 4 cemented PS femur. 2. [place] size 4 cemented [place] tibial baseplate. 3. [place] size 4, 11 mm PS polyethylene insert. 4. Derian size 29 x 9 mm cemented asymmetric patella. DESCRIPTION OF PROCEDURE: The patient was identified in the preoperative holding area. Proper site was marked and identified by the surgeon. The patient was taken back to the operating theater. After adequate anesthesia, the patient's left lower extremity was placed in a nonsterile tourniquet and then left lower extremity was sterilely prepped and draped in usual sterile fashion. OR time-out was performed. The patient received 2 g of IV Ancef. Left lower extremity was exsanguinated and tourniquet was insufflated to 250 mmHg. Standard anterior incision was made. This was taken down and medial parapatellar arthrotomy was created. I did take further down the tibia so that the proximal portion of the tibial plate could be exposed on the medial crest of the tibia. At this time, attention was turned to the patella. Patella measured 21 and resected to 13 for a 29 x 9 mm patella. Drill holes were then drilled and found to be adequate. Distal femoral drill hole was then placed and distal femoral cutting guide was placed down the canal of the femur. 10 mm was then resected off the distal femur. It was found to be an adequate resection. The 4-in-1 sizing block was then placed and epicondylar axis holes were drilled using Whitesides line and epicondyles as reference. The size 4-in-1 cutting block was placed. The anterior posterior and anterior and posterior chamfer cuts were then completed and found to be adequate. Box cut was next completed and found to be adequate. Attention was turned to the tibia. At this time, the proximal 2 tibial screws were removed using a [employer]. At this time, the extramedullary tibial cutting guide was then placed in center of the old ACL. It was aligned with the center of the ankle in neutral alignment. 2 mm was then resected off the lowest defect. At this time, posterior osteophytes as well as the medial and lateral meniscus were removed. The size 4 tibial base plate was found to have adequate coverage. It was then pinned in place. The trial implants were placed. The patient had full range of motion with size 11 trial. Patella was tracking centrally and there was no varus-valgus instability. At this time, cement was mixed on the back table. All cut surfaces were irrigated with pulse lavage irrigation with Ancef and then completely dried. Gloves were then changed. Once the cement was ready, the size 4 tibial base plate was then impacted into place. Excess cement was removed. The size 4 femur was then impacted into place and excess cement was removed. The 11 mm polyethylene insert was then placed, and the patient's knee was brought into full extension. Again, all excess cement was removed and a 29 x 9 mm patella was cemented into place. At this time, the plate proximally on the tibia was shown to be a little prominent that we were already eroding through the skin as it was right near the incision, so at this time we decided to take off just the top roughly inch and a half of the plate. A metal cutting danae was then opened and I was able to cut off the first inch and half of the top of the plate, making sure not to destabilize the construct to get it to below the level of the stem of the tibial component. All metal shavings were irrigated out. 1 L of pulse lavage irrigation with Ancef was irrigated through the knee and then Irrisept was irrigated through the knee. Topical tranexamic acid and vancomycin powder were applied. The periarticular injection was completed and #2 barbed suture was used for closure of the medial parapatellar arthrotomy, 2-0 Vicryl was used subcutaneously, and Prineo was used for closure of the skin. The patient tolerated the procedure well and sent to PACU in stable condition. MMGINO /[id number]
== END 2020-02-19 12:30 | disposition home or self-care (01) | DRG 468 ==
LOC: JD.OB 02-18 09:19 → EDSTATUS 02-18 11:00 → JD.MS 02-19 12:29 → UNDODISIN 02-19 12:30
PROVIDERS: ADMIT Orthopaedic Surgery; ATTEND Orthopaedic Surgery
PROC: 0SPD0JZ Removal of Synthetic Substitute from Left Knee Joint, Open Approach (ICD-10-PCS; principal; 2020-02-18)
PROC: 0SRD069 Replacement of Left Knee Joint with Oxidized Zirconium on Polyethylene Synthetic Substitute, Cemented, Open Approach (ICD-10-PCS; 2020-02-18)
DX: M17.12 Unilateral primary osteoarthritis, left knee (principal); I25.10 Atherosclerotic heart disease of native coronary artery without angina pectoris; E03.9 Hypothyroidism, unspecified; I10 Essential (primary) hypertension; R73.03 Prediabetes; E66.01 Morbid (severe) obesity due to excess calories; H35.30 Unspecified macular degeneration; K21.9 Gastro-esophageal reflux disease without esophagitis; H54.7 Unspecified visual loss; M81.0 Age-related osteoporosis without current pathological fracture; M24.562 Contracture, left knee; Z86.79 Personal history of other diseases of the circulatory system; Z86.19 Personal history of other infectious and parasitic diseases; Z87.891 Personal history of nicotine dependence; Z95.0 Presence of cardiac pacemaker; Z95.3 Presence of xenogenic heart valve; Z68.34 Body mass index [BMI] 34.0-34.9, adult; Z88.6 Allergy status to analgesic agent; Z79.01 Long term (current) use of anticoagulants; Z95.2 Presence of prosthetic heart valve; Z88.2 Allergy status to sulfonamides; Z79.899 Other long term (current) drug therapy; Z79.82 Long term (current) use of aspirin; Z98.49 Cataract extraction status, unspecified eye
CPT/HCPCS: 01402; 36415; 64450; 73560-26-LT; 73560-LT; 85027; 87641; 97110-GP; 97116-GP; 97161-GP; 97165-GO; 97530-GO; 97535-GO; 99222; 99232; A9270-GY; C1713; C1776; J0171; J0690; J0697; J1885; J2001; J2250; J2270; J2370; J2405; J2704; J2795; J3010; J3370; J3490; J7120